=== PATIENT | male | born 1955 | race Caucasian/White ===

== ENCOUNTER 2024-08-28 01:59 | Inpatient (IN) | payer MEDICARE, SELFPAY ==
[2024-08-27 21:39] VITALS: BP 141/82
[2024-08-27 21:40] VITALS: BP 141/82
[2024-08-27 22:00] VITALS: BP 134/81
[2024-08-27 22:10] LABS: % Basophils 0.4 % (0-2); % Eosinophils 0.1 % (0-6); % Immature Granulocytes 0.4 % (0-0.5); % Lymphocytes 8.1 % (20.5-51.1); % Monocytes 4.8 % (1.7-9.3); % Neutrophils 86.2 % (42.2-75.2); Absolute Basophils 0.1 10^3/uL (0-0.2); Absolute Immature Granulocytes 0.1 10^3/uL (0-0.05); Absolute Lymphocytes 1.1 10^3/uL (1.2-3.4); Absolute Monocytes 0.7 10^3/uL (0.1-0.6); Absolute Neutrophils 11.7 10^3/uL (1.4-6.5); Hemoglobin 13.4 g/dL (13.0-18.0); Mean Corp Hgb Conc. 35.3 g/dL (33.0-37.0); Mean Corpuscular Hgb 28.7 pg (27.0-31.0); Mean Corpuscular Volume 81.4 fL (80.0-94.0); Mean Platelet Volume 8.9 fL (7.4-10.4); Nucleated Red Blood Cells % 0 % (-); Platelet Count 178 10^3/uL (130-400); Red Blood Cell Count 4.67 10^6/uL (4.70-6.10); Red Cell Dist. Width 12.9 % (11.5-14.5); White Blood Cell Count 13.6 10^3/uL (4.8-10.8)
[2024-08-27 22:16] LABS: Lactic Acid 2.2 mmol/L (0.7-2.0)
[2024-08-27 22:17] LABS: ALT (SGPT) 27 U/L (0-50); AST (SGOT) 23 U/L (17-59); Alkaline Phosphatase 74 U/L (38-126); Blood Urea Nitrogen 24 mg/dl (9-20); Calcium 10.2 mg/dl (8.4-10.2); Carbon Dioxide 18 mmol/L (22-30); Chloride 99 mmol/L (98-107); Estimated Creatinine Clearance 88 ml/min; Glucose 162 mg/dl (70-99); Potassium 3.9 mmol/L (3.5-5.1); Sodium 132 mmol/L (135-145); Total Bilirubin 0.9 mg/dl (0.2-1.3); Total Protein 7.7 g/dl (6.3-8.2); eGFR > 60.00
[2024-08-27 22:25] LABS: COVID-19 Antigen Negative (Negative)
--- NOTE | 2024-08-27 22:41 | ED.GENMED ---
History of Present Illness
General
Chief Complaint: Fever
Source: patient and spouse
Exam Limitations: none
Time Seen by Provider: 08/27/24 22:18
Nursing documentation reviewed up to this point in time: agreed with
History of Present Illness
History of Present Illness:
69-year-old male with past medical history of hypertension, diabetes who presents to the emergency department with his and son for evaluation of fever. Of note is 5 days status post cardiac catheterization and stent at [facility]
of [place] with Dr. Victorino Aguilar. He reports that he was doing generally well until this afternoon when he started to notice he was having shaking chills and fever. He says symptoms continued in the evening and he took 2 extra strength Tylenol and
a dose of penicillin and called EMS to bring him to the hospital for assessment. He has not had any symptoms aside from fever or chills�denies any cough, sore throat, URI symptoms. He denies any shortness of breath or chest pain. He denies any
abdominal pain, nausea, vomiting, diarrhea. Denies any dysuria, hematuria, change in frequency. Cardiac cath was through right wrist and is not noticed any redness or swelling in this area. He says he has had cellulitis in the right leg in the
past but has not had any redness or swelling there either. He denies any other complaints.
Review of Systems
Review of Systems
All Other Systems: ROS reviewed and negative except as documented in HPI and ROS
Constitutional: Reports fever, fatigue and chills
EENT: Denies sore throat or runny nose
Respiratory: Denies cough or trouble breathing
Cardiac: Denies chest pain or palpitations
ABD/GI: Denies abdominal pain, nausea, vomiting or diarrhea
: Denies dysuria, frequency or flank pain
Musculoskeletal: Denies neck pain or back pain
Neurological: Denies dizzy or headache
Phy Exam
Physical Exam
Physical Exam:
General: Awake, alert, oriented x3; no acute distress
Head: Normocephalic, atraumatic
Eyes: Conjunctiva normal, sclera anicteric
Throat: Airway intact, handling secretions
Neck: Trachea midline, supple without meningismus
Lungs: Clear to auscultation bilaterally, no wheezing, rales, rhonchi
Heart: Tachycardia with regular rhythm, no murmurs, gallops, or rubs
Abd: Soft, non distended, nontender
Neuro: No gross deficits
Skin: no rash, no erythema or warmth noted on skin exam; he has puncture site right radial region with no signs of infection, no significant swelling
Extremities: No edema in extremities, equal pulses in all extremities
Scores
Heart Failure Risk
Heart Failure Risk Score: Not Applicable
Heart Score for Chest Pain Patients
STEMI patient?: Not applicable
Withdrawal Assessment of Alcohol
Withdrawal Assessment Completed?: Not applicable
Sepsis
Sepsis Screening
Sepsis Assessment: Sepsis
Sepsis Screening: Lactate >2mmol/L
Sepsis Screen
Sepsis Screen: Sepsis
Date: 08/27/24
Time: 22:51
Course
Orders/Labs/Results
Orders:
Orders
08/27/24 21:46
Electrocardiogram (*1) Urgent
Reason for Study: Other
Other Reason for Exam: Possible Sepsis
Cardiac Monitoring- Treatment ONCE
IV Insert/Care/Rem.- Treatment PRN
O2 Therapy [RESP] Urgent
Titrate/Wean O2 to maintain O2 sat greater than (%): 93
Special Instructions: TO MAINTAIN CONTINUOUS O2 SATS > OR = 93%
Pulse Ox/cont/shift [RESP] Urgent
Quantity: 1
Special Instructions: CONTINUOUS
08/27/24 21:47
EKG- Treatment ONCE
08/27/24 21:49
Complete Blood Count/With Diff Urgent
Comprehensive Metabolic Panel Urgent
Lactic Acid Q4H
Comment: ON ICE, CANCEL 2ND ORDER IF FIRST LACTIC ACID LEVEL <2
08/27/24 21:52
COVID-19 Antigen Urgent
Source: Nasal Swab
Influenza A+B Rapid Molecular Urgent
KATTY Source: Nasal Swab
Specimen Description:
08/27/24 22:30
CR Chest - 2 Views Urgent
Comment:
Reason For Exam: fever
08/27/24 22:41
0.9% Sodium Chloride 1000 ml [Nss] 1,000 ml IV BOLUS
08/27/24 22:51
Piperacillin/Tazo 3.375 Gram [Zosyn] 3.375 gram in 50 ml IV NOW
Vancomycin [Vancocin] 2,000 mg 0.9% Sodium Chloride 500 ml [Nss] 500 ml IV NOW
08/27/24 23:04
Urinalysis Reflex To Culture Urgent
Date Specimen was Collected: 08/27/24
Time Specimen was Collected: 23:03
Urine Microscopic Reflex Cult Urgent
Blood Culture Q30M
KATTY Source: Blood/Venous
Specimen Description:
Blood Culture Q30M
KATTY Source: Blood/Venous
Specimen Description:
08/28/24 01:02
Admit/Transfer Patient As Directed
Co-Sign Provider:
Level of Care: Inpatient admission
Assign to:: Medical/Surgical
Physician / Group: José
Diagnosis: SIRS
Reason for Hospitalization: SIRS
Expected length of stay greater than two midnights?: Yes
ELOS- Estimated Length of Stay in days: 2
I certify the patient meets the requirements for IP care: Yes
08/28/24 01:03
PRN Pain Medication Management As Directed
May give lesser potent ordered pain med per pt: Yes
preference::
Protocol:: Medication orders for pain may be administered in a
manner that supports deferring to patient preference
when the pt is:
- Requesting an ordered lesser potent pain medication.
Least to most potent pain medications are defined
as: acetaminophen < NSAID < tramadol < opioids
(morphine, oxycodone, hydromorphone).
- Requesting a lesser dose of the same medication IF
ORDERED.
- Requesting a less intrusive route of administration
if both routes are prescribed by the provider (PO <
IV).
08/28/24 01:04
Code Status As Directed
Resuscitation Status: Full Code
08/28/24 02:12
Acetaminophen [Tylenol] 650 mg PO Q4HPRN PRN
Dextrose 50%-Water [Dextrose 50% Syringe] 12.5 grams IV [id number] PRN
Glucagon [GlucaGen] 1 mg IM PRN PRN
Lactated Ringers [Lr] 1,000 ml IV 100 mls/hr
08/28/24 02:12
Activity As Directed
Activity Level: Ambulate
With Assistance
Bedside Glucose Monitoring As Directed
Frequency: AC&HS
Additional Instructions:: Change to q6h if pt on TPN, tube feeding or not eating
Bladder Scan As Directed
Follow Bladder Retention/Intermittent Cath Algorithm?: Yes
PRN if no void in __ hours: 6
Frequency: Per Retention Algorithm
If Bladder Scan Result >: 400
then:: Straight cath
I/O [Intake/ Output] As Directed
Frequency: Per unit guidelines
Straight Cath As Directed
Frequency: Per Retention Algorithm
Additional Instructions: straight cath as needed per acute urinary retention algorithm for 24 hrs
Additional Instructions: for bladder scan greater than 400 mL
Vital Signs As Directed
Frequency: Per unit guidelines
Oxygen Therapy [O2 Therapy] [RESP] Routine
Titrate/Wean O2 to maintain O2 sat greater than (%): 94
DX Deep Vein Thrombosis Video Routine
08/28/24 02:26
CRP [C-Reactive Protein] Routine
ESR [Erythrocyte Sed Rate] Routine
Lactic Acid Q4H
Comment: ON ICE, CANCEL 2ND ORDER IF FIRST LACTIC ACID LEVEL <2
08/28/24 04:00
Piperacillin/Tazo 3.375 Gram [Zosyn] 3.375 gram in 50 ml IV Q6H
08/28/24 Breakfast
2000 calorie (17 carb) Diabetic
At Your Request: Full Participation
Basic Metabolic Panel IN AM
Complete Blood Count/No Diff IN AM
Glycohemoglobin (HgbA1c) IN AM
08/28/24 07:30
Insulin Aspart Corrective Low [Novolog Flexpen-Low Resistance] See Protocol SC AC
08/28/24 08:00
Aspirin Chewable [Low Strength Aspirin] 81 mg PO DAILY
Clopidogrel Bisulfate [Plavix] 75 mg PO DAILY
08/28/24 12:00
Losartan [Cozaar] 100 mg PO NOON
08/28/24 18:00
Enoxaparin Sodium [Lovenox] 40 mg SC QPM
Rosuvastatin Calcium [Crestor] 10 mg PO QPM
08/28/24 22:00
Finasteride [Proscar] 5 mg PO HS
Tamsulosin [Flomax] 0.4 mg PO HS
Abnormal Lab Results
08/27/24 08/27/24
21:49 23:04
WBC 13.6 H 10^3/uL
(4.8-10.8)
RBC 4.67 L 10^6/uL
(4.70-6.10)
Hct 38.0 L %
(39.0-52.0)
Abs Immat Gran (auto) 0.1 H 10^3/uL
(0-0.05)
Absolute Neuts (auto) 11.7 H 10^3/uL
(1.4-6.5)
Absolute Lymphs (auto) 1.1 L 10^3/uL
(1.2-3.4)
Absolute Monos (auto) 0.7 H 10^3/uL
(0.1-0.6)
Neutrophils % 86.2 H %
(42.2-75.2)
Lymphocytes % 8.1 L %
(20.5-51.1)
Sodium 132 L mmol/L
(135-145)
Carbon Dioxide 18 L mmol/L
(22-30)
BUN 24 H mg/dl
(9-20)
Glucose 162 H mg/dl
(70-99)
Lactic Acid 2.2 H mmol/L
(0.7-2.0)
Ur Occult Blood Reflex 1+ A
(Negative)
Urine RBC 3-6 A /HPF
(0-2)
Urine Bacteria (Reflex) Few A
(Negative)
Urine Albumin (Reflex) 2+ A
(Neg - Trace)
08/27/24 21:49
08/27/24 21:49
Vital Signs
Initial and Last Documented VS:
Initial Vital Signs
Temp Pulse Resp BP Pulse Ox
37.0 C 111 22 141/82 96
08/27/24 21:39 08/27/24 21:39 08/27/24 21:39 08/27/24 21:39 08/27/24 21:39
Last Documented Vital Signs
Temp Pulse Resp BP Pulse Ox
37.3 C 101 20 127/73 94
08/28/24 02:25 08/28/24 01:00 08/28/24 01:00 08/28/24 01:00 08/28/24 00:45
MDM/Problems Addressed
Differential Diagnosis Includes:
Pneumonia, UTI, bacteremia, viral syndrome
MDM/Problems Addressed:
69-year-old male presents for evaluation of fever and chills 5 days status post cardiac cath and stent at [facility]. Took 2 Tylenol and a dose of penicillin and came to the ER. Tachycardic, mild tachypnea, febrile
here. Normotensive. Normal pulse ox on room air. Physical exam as above. No obvious focus for infection on exam or by history. Will place an IV send labs including a CBC and a CMP, lactate and blood cultures. Swab for COVID and flu. Check an
EKG. Will check chest x-ray and urinalysis. Will provide fluids. Reassess after the above.
Initial labs reviewed: CBC shows leukocytosis of 13.6. CMP shows mild metabolic acidosis; lactate was elevated at 2.2 suspect likely lactic acidosis. COVID and flu swabs have been negative. Chest x-ray and urinalysis are pending. He is at risk
for bacteremia given recent procedure I think with multiple SIRS criteria and elevated lactate will plan to cover with broad-spectrum antibiotics pending blood cultures. Anticipate admission pending chest x-ray and urinalysis.
Chest x-ray reviewed by me question a right perihilar pneumonia although upon review of radiology report read as no acute disease. His urinalysis is negative for infection. Will plan to admit pending blood cultures cover with broad-spectrum
antibiotics as above. Given IV fluids with elevated lactate but with lactate less than 4 and normotension no need for 30 cc/kg bolus. Case discussed with hospitalist for admission.
*Radiology
Radiology exam reviewed: preliminary read by ED provider and radiology read reviewed
*Pulse Oximetry
Patient hypoxic: no
*EKG
Interpreted by ED Provider?: Yes
Heart Rate: 107
Rate: tachycardiac
Rhythm: sinus and sinus tachycardia
[place]: normal axis
Interval: normal interval
QRS Pattern: normal QRS
Ischemia: non-specific ST changes
*Critical Care Note
Total Time (30-74mins, 75-104mins- exclusive of procedures): Not Applicable
Data Reviewed
Source: patient, spouse and family
Patient Management
Discussion with other providers: Hospitalist (Discussed with hospitalist)
Escalation/DeEscalation of care consider admission/obs:
Admission indicated
ED Attending Note
-
Portions of this chart may have been created with voice recognition software.� Occasional wrong word or��sound alike� substitutions may have occurred due to the inherent limitations of voice recognition software.
Discharge Plan
Departure
Patient Disposition: Admit
Date of Disposition: 08/27/24
Time of Disposition: 23:39
Admit to doctor: José
Presentation/result/management discussed w/ accepting MD/DO: Hospitalist
Discharge Problem:
Sepsis
Interventions
Interventions:
*Risk Screen - Suicide Last Done: 08/27/24 21:39
*General Assessment Last Done: 08/27/24 21:39
*Neglect/Abuse Screening Last Done: 08/27/24 21:39
ED- Fall Risk Assessment Last Done: 08/27/24 21:46
*ED COVID-19 Vaccine History Last Done: 08/27/24 21:39
ED- Neurological Assessment Last Done: 08/27/24 22:00
ED-Skin Assessment Last Done: 08/27/24 22:00
[2024-08-27] MEDS: NSS 1000 IV (22:59)
[2024-08-27] MEDS: ZOSYN 50 IV (22:59)
[2024-08-27 23:16] LABS: Urine Albumin 2+ (Neg - Trace); Urine Bilirubin Negative (Negative); Urine Character Clear (Clear); Urine Color Yellow; Urine Glucose Negative (Negative); Urine Ketone Negative (Negative); Urine Leukocyte Negative (Negative); Urine Nitrite Negative (Negative); Urine Occult Blood 1+ (Negative); Urine Specific Gravity 1.015 (<1.030); Urine Urobilinogen Negative (Neg - 1+)
[2024-08-27 23:27] LABS: Urine Squamous Cell 0-2 /LPF (Few)
[2024-08-27 23:28] LABS: Urine White Cell 0-2 /HPF (0-5)
[2024-08-27 23:30] LABS: Urine Bacteria Few (Negative)
[2024-08-28] VITALS (7 sets, daily range): BP systolic 124–143; BP diastolic 62–92; BMI 36.9
[2024-08-28] MEDS: VANCOCIN 540 MG IV (00:09)
--- NOTE | 2024-08-28 01:09 | HPS.HSE ---
Family Physician
-
Family Physician: Sg Bradshaw
Chief Complaint
-
Fever / Chills
History of Present Illness
Patient is a 69y M with PMH significant for hypertension and ASCVD s/p recent cardiac cath / stent who presents to ED complaining of fevers / chills. Patient states that he underwent cath with LAD stent placement at [facility] on 08/22/24. This was
done on a scheduled basis following outpatient work-up. He felt well following the procedure. This afternoon around 4-5 PM he developed shaking chills and fever at home. He presented to the ED for further evaluation and treatment.
He reports mild headache this afternoon as well. Patient denies any other focal symptoms / complaints. He denies cough, SOB, abdominal pain, N/V/D or urinary symptoms.
Patient reports prior h/o RLE cellulitis and states his symptoms usually begin with fevers / chills and are followed by development of RLE redness / inflammation within 24 hours.
He denies any recent sick contacts.
No recent travel.
In the ED he is resting comfortably.
Medical History
Past Medical History
Past Medical History: Reports Other
Additional Past Medical History:
ASCVD
Hypertension
DM-II
Dyslipidemia
DJD
Obesity
Past Surgical History: Reports Other
Additional Past Surgical History:
PTCA with LAD Stent (08/22/24)
Cholecystectomy
Social History
Tobacco: Former Smoker (Quit smoking 20 years ago. Approx 20 pack years total use.)
Alcohol: Occasional
Drug: None
Family History
Family History: Not pertinent
Allergies / Home Medications
Allergies reflects when Allergies were last updated in [employer].
Home Medications with original date entered in [employer]
Allergy/Medication List:
Allergies
Allergy/AdvReac Type Severity Reaction Status Date / Time
steroids Allergy Swelling Uncoded 08/27/24 21:46
Home Medications
amlodipine 10 mg tablet 10 mg PO DAILY 08/27/24
aspirin 81 mg capsule 81 mg PO QPM 08/27/24
clopidogrel 75 mg tablet (Plavix) 75 mg PO DAILY 08/27/24
finasteride 5 mg tablet 5 mg PO HS 08/27/24
indapamide 1.25 mg tablet 1.25 mg PO DAILY 08/27/24
losartan 100 mg tablet 100 mg PO NOON 08/27/24
metformin 500 mg tablet 500 mg PO BID 08/27/24
rosuvastatin 10 mg tablet 10 mg PO QPM 08/27/24
tamsulosin 0.4 mg capsule 0.4 mg PO HS 08/27/24
Review of Systems
-
History Source: Patient
A 12 point ROS was completed and negative except as noted: Yes
Constitutional: Reports Fever, Fatigue and Chills
EENT: Denies Sore Throat
Respiratory: Denies Cough or Trouble Breathing
Cardiac: Denies Chest Pain or Palpitations
Abdomen/GI: Denies Abdominal Pain, Nausea, Vomiting or Diarrhea
: Denies Dysuria, Frequency or Flank Pain
Musculoskeletal: Denies Joint Pain or Edema
Skin: Denies Rash
Neurological: Reports Headache; Denies Dizzy
Psych: Denies Depression or Anxiety
Physical Exam
Vital Signs
Vital Signs
Temp Pulse Resp BP Pulse Ox
99.6 F 100 15 124/72 94
08/28/24 00:32 08/28/24 00:45 08/28/24 00:45 08/28/24 00:00 08/28/24 00:45
Physical Exam
General: Other (69y M in no acute distress.)
HEENT: Moist mucous membranes and PERRLA
Respiratory: Clear; No Wheezes, Rales or Rhonchi
Cardiac: S1/S2 and Regular Rhythm; No Murmur
GI: Soft, Non Tender, Non Distended and Normal Bowel Sounds
Musculoskeletal: No Clubbing, No Cyanosis and No Edema
Skin: Other (R radial puncture site well-healed without surrounding erythema, induration, fluctuance, etc.)
Neuro: AO x 3
Laboratory Results
-
08/27/24 21:49
08/27/24 21:49
Laboratory Results
Lactic Acid 2.2 mmol/L (0.7-2.0) H 08/27/24 21:49
Total Bilirubin 0.9 mg/dl (0.2-1.3) 08/27/24 21:49
AST 23 U/L (17-59) 08/27/24 21:49
ALT 27 U/L (0-50) 08/27/24 21:49
Alkaline Phosphatase 74 U/L (38-126) 08/27/24 21:49
Impression/Plan
-
A/P: Patient is a 69y M with PMH significant for HTN, DM-II and recent LAD stent placement who presents to ED complaining of fevers / chills this afternoon.
Rigors / SIRS
- Admit for further evaluation and treatment.
- Patient presents with fever, tachycardia, tachypnea and leukocytosis with L shift.
- No evident source of infection noted at this time. No focal symptoms. UA unremarkable. CXR unremarkable. COVID / Flu negative.
- Follow fever curve and monitor for any new / focal complaints.
- Check inflammatory markers.
- Monitor for any developing cellulitis in the RLE (as patient has had previously).
- Will continue Zosyn for now pending culture data - but low threshold to discontinue if no further fevers / symptoms / etc.
- IVF support overnight.
ASCVD
- s/p LAD stent on 08/22/24.
- No chest pain, dyspnea, etc.
- No evidence of infection, inflammation, etc at R radial access site.
- Continue DAPT uninterrupted.
- Continue statin.
Benign Hypertension
- Continue losartan with holding parameters.
- Hold amlodipine and indapamide acutely - resume if BP allows.
DM-II
- Stable. Hold PO metformin.
- Follow glucose and cover with SSI as needed.
- Update A1C.
BPH
- Stable. Continue tamsulosin / Proscar.
- Bladder scan protocol.
Obesity due to excess calories
- Affects all aspects of care.
- Encourage healthy diet and increased activity with goal of weight loss.
DVT Prophylaxis: Lovenox
Code Status: Full
[2024-08-28] MEDS: LR 1000 IV ×3 (02:25→22:59)
[2024-08-28 02:58] LABS: Lactic Acid 1.4 mmol/L (0.7-2.0)
[2024-08-28 03:09] LABS: Erythrocyte Sed Rate 18 mm/hour (0-20)
[2024-08-28] MEDS: ZOSYN 50 IV ×4 (04:14→21:19)
[2024-08-28 05:12] LABS: Hematocrit 34.4 % (39.0-52.0); Hemoglobin 12.1 g/dL (13.0-18.0); Mean Corp Hgb Conc. 35.2 g/dL (33.0-37.0); Mean Corpuscular Hgb 28.8 pg (27.0-31.0); Mean Corpuscular Volume 81.9 fL (80.0-94.0); Mean Platelet Volume 8.5 fL (7.4-10.4); Platelet Count 134 10^3/uL (130-400); White Blood Cell Count 8.9 10^3/uL (4.8-10.8)
[2024-08-28 05:30] LABS: Blood Urea Nitrogen 21 mg/dl (9-20); Calcium 9.7 mg/dl (8.4-10.2); Carbon Dioxide 24 mmol/L (22-30); Chloride 103 mmol/L (98-107); Estimated Creatinine Clearance 88 ml/min; Glucose 156 mg/dl (70-99); Potassium 3.7 mmol/L (3.5-5.1); Sodium 135 mmol/L (135-145); eGFR > 60.00
[2024-08-28] MEDS: PLAVIX 75 MG PO (08:42)
[2024-08-28] MEDS: LOW STRENGTH ASPIRIN PO (08:44)
[2024-08-28 08:47] LABS: Glucose - Point of Care 172 mg/dl (70-99)
[2024-08-28 09:41] LABS: Glycohemoglobin (HgbA1c) 6.9 % (4.0-5.6)
[2024-08-28] MEDS: NOVOLOG FLEXPEN-LOW RESISTANCE 1 UNITS SC ×3 (10:02→18:22)
[2024-08-28 13:30] LABS: Glucose - Point of Care 182 mg/dl (70-99)
--- NOTE | 2024-08-28 13:55 | W.PN.UPDATE ---
Addendum entered and electronically signed by Yohannes Barr MD 08/28/24 14:19:
right wrist cath site was reviewed, n o erythema/purulence at site.
no respiratory symptoms to suspect pna
Original Note:
Update Note
Progress Note Update
Presenting with acute onset fevers chills muscle aches. No clear source of infection at this point in time. No evidence of cellulitis on the limbs nor back nor abdomen. No crackles/rhonchi on lung examination. No murmurs noted on examination.
Therefore at this time there is no source of infection.
He is hemodynamically stable. All bite he does not feel very good.
I have a strong suspicion that this is likely acute viral syndrome than bacterial infection.
I spoke to him about benefits versus risk of continuing/discontinuing antibiotics awaiting culture data.
At this time he wants to continue antibiotics. Will check a procalcitonin along with extended respiratory viral panel.
[2024-08-28] MEDS: COZAAR 100 MG PO (14:03)
[2024-08-28] MEDS: TYLENOL 650 MG PO (16:58)
[2024-08-28 18:20] LABS: Glucose - Point of Care 160 mg/dl (70-99)
[2024-08-28] MEDS: CRESTOR 10 MG PO (18:20)
--- NOTE | 2024-08-28 18:25 | PTCARENOTE ---
Called report to unit, pt transported with belongings without incident
[2024-08-28] MEDS: LOW STRENGTH ASPIRIN 81 MG PO (18:30)
[2024-08-28] MEDS: PROSCAR 5 MG PO (21:19)
[2024-08-28] MEDS: FLOMAX 0.4 MG PO (21:19)
[2024-08-28 21:54] LABS: Glucose - Point of Care 209 mg/dl (70-99)
[2024-08-29] MEDS: ZOSYN 50 IV ×2 (04:14→10:14)
[2024-08-29 07:28] LABS: Glucose - Point of Care 146 mg/dl (70-99)
[2024-08-29 07:30] VITALS: BP 151/86
[2024-08-29] MEDS: PLAVIX 75 MG PO (08:11)
[2024-08-29] MEDS: NOVOLOG FLEXPEN-LOW RESISTANCE SC ×2 (08:11→12:43)
[2024-08-29] MEDS: LOW STRENGTH ASPIRIN 81 MG PO (08:12)
[2024-08-29] MEDS: LR 1000 IV (08:21)
--- NOTE | 2024-08-29 11:12 | W.PN.HOSP.TC ---
Today's Communication/Plan
-
dc home today
Assessment / Plan
Assessment / Plan
NAD
Scleral anicteric
MMM
No jvd
CTABL
RRR
Soft NT ND Bs+
No rash/erythema
No purulent drainage nor pain at recent right wrist cath site
Acute viral syndrome
-Bcx NGTD
-Exetended viral panel pending, though even negative does not exclude this diagnosis
-Symptomaology most consistent with viral infection
-Supportive care
-Outpt PCP follow up
CAD s/p PCI
-Contniie DAPT, stating
BPH
-Continue finasteride and flomax
HTN
-Continue antihypertensive
DM 2
-Cotnineu Metformine
Anticipated Discharge: Today
Subjective/Interval History
-
Date of Service: August 29, 2024
seen and examiend. no new compalitns. no acute ovneirhgt evets
states feeling better
no further episodes of myalgias fevers chills
Objective Data
-
Vital Signs:
Vital Signs
Temp Pulse Resp BP Pulse Ox
99.7 F 88 18 151/86 94
08/29/24 07:30 08/29/24 07:30 08/29/24 07:30 08/29/24 07:30 08/29/24 07:30
I&O
08/28/24 08/29/24 08/30/24
06:59 06:59 06:59
Intake Total 120 / 120 400 / 400
Balance 120 / 120 400 / 400
--- NOTE | 2024-08-29 11:17 | W.DCSUMMARY ---
Discharge Summary
Discharge Data
Date of Admission: 08/28/24
Date of Discharge: 08/29/24
-
Pending Results: No
Hospital Course
69y M with PMH significant for hypertension and ASCVD s/p recent cardiac cath / stent
Presented with fever, chills and myalgias. Blood cultures no growth to date. Covid and flu negative. Started on iv antibiotics as there was concern for sepsis though no source of infection was noted. Had a recent left heart catheterization via the
right wrist. There was no purulent drainage nor pain/redness at right wrist site. Remained hemodynamically stable throughout the hospitalization. Suspect the cause of the fever and chills was likely related to acute viral syndrome. Please follow up
with outpatient technology training associate as recently had [facility] with PCI and outpatient PCP follow up.
Discharge Plan
-
Patient Disposition: Home (Routine Discharge)
Discharge Diagnosis/Procedures: Acute viral syndrome
Condition: Good
Diet: As tolerated and Diabetic, Carb Controlled
Activity: As tolerated
Activity Restrictions/Additional Instructions:
Presented with fever, chills and myalgias. Blood cultures no growth to date. Covid and flu negative. Started on iv antibiotics as there was concern for sepsis though no source of infection was noted. Had a recent left heart catheterization via the
right wrist. There was no purulent drainage nor pain/redness at right wrist site. Remained hemodynamically stable throughout the hospitalization. Suspect the cause of the fever and chills was likely related to acute viral syndrome. Please follow up
with outpatient technology training associate as recently had [facility] with PCI and outpatient PCP follow up.
Referrals:
Sg Bradshaw DO [Family Provider] -
Prescriptions:
Continued
metformin 500 mg Tablet
500 mg PO BID
clopidogrel [Plavix] 75 mg Tablet
75 mg PO DAILY
tamsulosin 0.4 mg Capsule
0.4 mg PO HS
indapamide 1.25 mg Tablet
1.25 mg PO DAILY
losartan 100 mg Tablet
100 mg PO NOON
finasteride 5 mg Tablet
5 mg PO HS
aspirin 81 mg Capsule
81 mg PO QPM
amlodipine 10 mg Tablet
10 mg PO DAILY
rosuvastatin 10 mg Tablet
10 mg PO QPM
Discharge Orders:
Discharge Patient (As Directed); Ordered 08/29/24
Ordered By: Yohannes Barr
Discharge Date and Time
Print Language: MAORI
[2024-08-29 11:50] VITALS: BMI 36.7
[2024-08-29] MEDS: COZAAR 100 MG PO (12:11)
[2024-08-29 12:18] VITALS: BP 134/72
[2024-08-29 12:36] LABS: Glucose - Point of Care 136 mg/dl (70-99)
== END 2024-08-29 14:36 | disposition home or self-care (01) | DRG 866 ==
LOC: 4 WEST ACU 01:59
PROVIDERS: ADMITTING PHYSICIAN Hospitalist; ATTENDING PHYSICIAN Hospitalist; EMERGENCY PHYSICIAN Emergency Medicine; FAMILY PHYSICIAN Family Medicine Adult Medicine
DX: B34.9 Viral infection, unspecified (principal); N40.0 Benign prostatic hyperplasia without lower urinary tract symptoms; I25.10 Atherosclerotic heart disease of native coronary artery without angina pectoris; I10 Essential (primary) hypertension; E11.9 Type 2 diabetes mellitus without complications; E66.09 Other obesity due to excess calories; Z68.36 Body mass index [BMI] 36.0-36.9, adult; Z11.52 Encounter for screening for COVID-19; E78.5 Hyperlipidemia, unspecified; M19.90 Unspecified osteoarthritis, unspecified site; Z79.82 Long term (current) use of aspirin; Z79.02 Long term (current) use of antithrombotics/antiplatelets; Z87.891 Personal history of nicotine dependence; Z95.5 Presence of coronary angioplasty implant and graft
CPT/HCPCS: 71046; 80048; 80053; 81003; 81015; 82962; 83036; 83605; 85025; 85027; 85652; 86140; 87040; 87502; 87633; 87811; 93005

== ENCOUNTER 2024-12-17 11:52 | Inpatient (IN) | payer MEDICARE, OTHER, SELFPAY ==
[2024-12-15] VITALS (7 sets, daily range): BP systolic 108–131; BP diastolic 57–75; BMI 36.9; BMI 36.3
[2024-12-15 15:20] LABS: % Basophils 0.3 % (0-2); % Immature Granulocytes 0.4 % (0-0.5); % Lymphocytes 8.5 % (20.5-51.1); % Monocytes 4.6 % (1.7-9.3); % Neutrophils 86.2 % (42.2-75.2); Absolute Immature Granulocytes 0.1 10^3/uL (0-0.05); Absolute Lymphocytes 1.2 10^3/uL (1.2-3.4); Absolute Monocytes 0.6 10^3/uL (0.1-0.6); Absolute Neutrophils 11.7 10^3/uL (1.4-6.5); Hematocrit 37.8 % (39.0-52.0); Hemoglobin 13.5 g/dL (13.0-18.0); Mean Corp Hgb Conc. 35.7 g/dL (33.0-37.0); Mean Corpuscular Hgb 28.6 pg (27.0-31.0); Mean Corpuscular Volume 80.1 fL (80.0-94.0); Mean Platelet Volume 9.1 fL (7.4-10.4); Nucleated Red Blood Cells % 0 % (-); Platelet Count 155 10^3/uL (130-400); Red Blood Cell Count 4.72 10^6/uL (4.70-6.10); Red Cell Dist. Width 12.9 % (11.5-14.5); White Blood Cell Count 13.6 10^3/uL (4.8-10.8)
[2024-12-15 15:32] LABS: Lactic Acid 1.9 mmol/L (0.7-2.0)
[2024-12-15 15:39] LABS: ALT (SGPT) 21 U/L (0-50); AST (SGOT) 19 U/L (17-59); Albumin 4.4 g/dl (3.5-5.0); Alkaline Phosphatase 56 U/L (38-126); Blood Urea Nitrogen 20 mg/dl (9-20); Calcium 9.3 mg/dl (8.4-10.2); Carbon Dioxide 22 mmol/L (22-30); Chloride 104 mmol/L (98-107); Glucose 192 mg/dl (70-99); Potassium 3.5 mmol/L (3.5-5.1); Sodium 136 mmol/L (135-145); Total Bilirubin 0.7 mg/dl (0.2-1.3); Total Protein 7.3 g/dl (6.3-8.2); eGFR > 60.00
--- NOTE | 2024-12-15 17:48 | ED.GENMED ---
History of Present Illness
General
Chief Complaint: Fever
Time Seen by Provider: 12/15/24 17:09
History of Present Illness
History of Present Illness:
Patient is a 69-year-old male with history of diabetes, hypertension, hyperlipidemia, CAD presenting to the emergency department with fever. Per chart review patient was admitted for sepsis earlier this year without a clear source of infection.
Patient and patient's at bedside state that last time he was sick he had sudden onset of symptoms requiring broad-spectrum antibiotics. They state that yesterday he was feeling fine. Developed a fever last night. This morning noticed redness
to his right lower extremity. He does state that he has history of cellulitis about 6 years ago. No traumatic events. No swelling. No wounds that he is aware of. No cough congestion chest pain shortness of breath nausea vomiting diarrhea
Phy Exam
Physical Exam
Physical Exam:
GENERAL: in no acute distress
HEENT: normocephalic, extraocular movements intact, moist oral mucosa
NECK: normal inspection
RESPIRATORY: no respiratory distress, clear to auscultation bilaterally
CARDIOVASCULAR: regular rate and rhythm
ABDOMEN/: soft, non-distended, non-tender to palpation, no rebound or guarding
EXTREMITIES: Right lower extremity with erythema and warmth to the anterior wong (area outlined in marker), 2+ DP pulses, normal sensation, mild swelling, no open wounds or drainage
NEUROLOGIC: awake and alert, moves all extremities
SKIN: warm
Course
Orders/Labs/Results
Orders:
Orders
12/15/24 15:13
Complete Blood Count/With Diff Urgent
Comprehensive Metabolic Panel Urgent
Lactic Acid Q4H
Comment: ON ICE, CANCEL 2ND ORDER IF FIRST LACTIC ACID LEVEL <2
Blood Culture Q20M
KATTY Source: Blood/Venous
Specimen Description:
Comment: Urgent from separate sites. If patient screens positive for possible sepsis
12/15/24 15:15
Blood Culture Q20M
KATTY Source: Blood/Venous
Specimen Description:
Comment: Urgent from separate sites. If patient screens positive for possible sepsis
12/15/24 17:47
*Vancomycin 1,500 mg Loading Dose(consider for 50-69 kg; MAX HD load) Vancomycin [Vancocin] 1,500 mg 0.9% Sodium Chloride 500 ml [Nss] 500 ml IV NOW
Zosyn 4.5 grams IVPB NOW Piperacillin/Tazo 4.5 Gram [Zosyn] 4.5 gram in 100 ml IV NOW
Abnormal Lab Results
12/15/24
15:13
WBC 13.6 H 10^3/uL
(4.8-10.8)
Hct 37.8 L %
(39.0-52.0)
Abs Immat Gran (auto) 0.1 H 10^3/uL
(0-0.05)
Absolute Neuts (auto) 11.7 H 10^3/uL
(1.4-6.5)
Neutrophils % 86.2 H %
(42.2-75.2)
Lymphocytes % 8.5 L %
(20.5-51.1)
Glucose 192 H mg/dl
(70-99)
12/15/24 15:13
12/15/24 15:13
Vital Signs
Initial and Last Documented VS:
Initial Vital Signs
Temp Pulse Resp BP Pulse Ox
100.1 F 65 18 129/67 99
12/15/24 15:00 12/15/24 15:00 12/15/24 15:00 12/15/24 15:00 12/15/24 15:00
Last Documented Vital Signs
Temp Pulse Resp BP Pulse Ox
100.1 F 65 18 129/67 99
12/15/24 15:00 12/15/24 15:00 12/15/24 15:00 12/15/24 15:00 12/15/24 15:00
MDM/Problems Addressed
Differential Diagnosis Includes:
Patient is a 69-year-old man presenting to the emergency department with fever and skin infection. On arrival patient's temperature is 100.1. On exam he does have an area of redness to the right anterior wong with no drainage. I did outline the
area as he does state that last time it progressed rapidly. Concern for cellulitis, sepsis. History and exam not consistent with necrotizing soft tissue infection. Blood work obtained prior to evaluation does show a leukocytosis. His lactate is
1.9. Will give IV fluids. Patient's and patient's states that he did need vancomycin for MRSA at some point. Given patient's comorbidities we will also give him Zosyn. Will give IV fluids. Discussed with hospitalist who excepted patient to
their service.
*Critical Care Note
Total Time (30-74mins, 75-104mins- exclusive of procedures): Not Applicable
ED Attending Note
-
Portions of this chart may have been created with voice recognition software.� Occasional wrong word or��sound alike� substitutions may have occurred due to the inherent limitations of voice recognition software.
Discharge Plan
Departure
Patient Disposition: Admit
Date of Disposition: 12/15/24
Time of Disposition: 17:51
Presentation/result/management discussed w/ accepting MD/: Hospitalist
Discharge Problem:
Cellulitis
Prescriptions:
No Action
metformin 500 mg Tablet
500 mg PO BID
clopidogrel [Plavix] 75 mg Tablet
75 mg PO DAILY
tamsulosin 0.4 mg Capsule
0.4 mg PO HS
indapamide 1.25 mg Tablet
1.25 mg PO DAILY
losartan 100 mg Tablet
100 mg PO NOON
finasteride 5 mg Tablet
5 mg PO HS
aspirin 81 mg Capsule
81 mg PO QPM
amlodipine 10 mg Tablet
10 mg PO DAILY
rosuvastatin 10 mg Tablet
10 mg PO QPM
Referrals:
Bradshaw,Sg, DO [Family Provider, Family Practice]
Interventions
Interventions:
*Risk Screen - Suicide Last Done: 12/15/24 15:02
Discharge Date and Time
Print Language: CANADIAN
--- NOTE | 2024-12-15 18:00 | HPS.HSE ---
Family Physician
-
Family Physician: Sg Bradshaw
Chief Complaint
-
fever
History of Present Illness
Patient is a 69-year-old male with past medical history significant for ASCVD, hypertension, DM-II, dyslipidemia, DJD and obesity who presented to [facility] ED for evaluation of fever. Patient and report that patient had abrupt onset of fever last
evening and noticed redness to RLE this morning. Patient reports history of cellulitis to RLE in past on multiple occasions, he has no recent trauma history to RLE, but did have trauma to RLE as a child. Patient reports an epiosde of nausea and
vomiting. Denies any chills, cough, shortness of breath, chest pain, constipation, diarrhea or urinary symptoms.
Medical History
Past Medical History
Past Medical History: Reports Other
Additional Past Medical History:
ASCVD
Hypertension
DM-II
Dyslipidemia
DJD
Obesity
Past Surgical History: Reports Other
Additional Past Surgical History:
PTCA with LAD Stent (08/22/24)
Cholecystectomy
Social History
Tobacco: Former Smoker (Quit smoking 20 years ago. Approx 20 pack years total use.)
Alcohol: Occasional
Drug: None
Personal:
Living: With Family
Employment: Retired
Family History
Family History: Not pertinent
Allergies / Home Medications
Allergies reflects when Allergies were last updated in to[facility].
Home Medications with original date entered in to-[facility]
Allergy/Medication List:
Allergies
Allergy/AdvReac Type Severity Reaction Status Date / Time
steroids Allergy Swelling Uncoded 08/27/24 21:46
Home Medications
amlodipine 10 mg tablet 10 mg PO DAILY Blood Pressure 08/27/24
aspirin 81 mg capsule 81 mg PO QPM Blood Clot Prevention/Tx 08/27/24
clopidogrel 75 mg tablet (Plavix) 75 mg PO DAILY Blood Clot Prevention/Tx 08/27/24
finasteride 5 mg tablet 5 mg PO HS Urinary Issue 08/27/24
indapamide 1.25 mg tablet 1.25 mg PO DAILY 08/27/24
losartan 100 mg tablet 100 mg PO NOON Blood Pressure 08/27/24
metformin 500 mg tablet 500 mg PO BID Diabetes 08/27/24
rosuvastatin 10 mg tablet 10 mg PO QPM High Cholesterol 08/27/24
tamsulosin 0.4 mg capsule 0.4 mg PO HS Urinary Issue 08/27/24
Review of Systems
-
History Source: Patient
Constitutional: Reports Fever
EENT: Reports No Symptoms
Respiratory: Reports No Symptoms
Cardiac: Reports No Symptoms
Abdomen/GI: Reports Nausea and Vomiting
: Reports No Symptoms
Musculoskeletal: Reports No Symptoms
Skin: Reports Other (RLE erythema )
Neurological: Reports No Symptoms
Endocrine: Reports No Symptoms
Hematologic/Lymphatic: Reports No Symptoms
Psych: Reports No Symptoms
Physical Exam
Vital Signs
Vital Signs
Temp Pulse Resp BP Pulse Ox
100.1 F 65 18 129/67 99
12/15/24 15:00 12/15/24 15:00 12/15/24 15:00 12/15/24 15:00 12/15/24 15:00
Physical Exam
General: Well Developed, Well Nourished, No Apparent Distress, Comfortable and Conversant
HEENT: NormoCephalic, Moist mucous membranes, Atraumatic, [place] Conjunctivae, Nose Appears Normal and Ears Appear Normal
Respiratory: Clear
Cardiac: S1/S2 and Regular Rhythm
Breast: Deferred by me
GI: Soft, Non Tender, Non Distended and Normal Bowel Sounds
Rectal: Deferred by Provider
Genito-urinary: Deferred by me
Musculoskeletal: No Clubbing, No Cyanosis and No Edema
Skin: Warm, IV/Catheter Site and Other (RLE erythema and warm to touch )
Neuro: Awake, Alert, AO x 3 and Nonfocal/grossly intact
Psych: Calm and Intact Judgment/Insight
Laboratory Results
-
12/15/24 15:13
12/15/24 15:
Laboratory Results
Lactic Acid Cancelled 12/15/24 15:15
Total Bilirubin 0.7 mg/dl (0.2-1.3) 12/15/24 15:
AST 19 U/L (17-59) 12/15/24 15:
ALT 21 U/L (0-50) 12/15/24 15:13
Alkaline Phosphatase 56 U/L (38-126) 12/15/24 15:
Data Reviewed
-
Lab Data: Labs Reviewed by me (WBC 13.6, Neut 86.2)
Impression/Plan
-
IMPRESSION/PLAN:
#cellulitis RLE
WBC 13.6, Neut 86.2
- Admit to med/surg
- IV cefazolin
- IVF
- supportive care
- consider ID consult if no improvement
#Hypertension
- continue indapamide and losartan
#DM-II
- continue metformin
#ASCVD
#Dyslipidemia
- continue aspirin, clopidogrel and rosuvastatin
#Obesity
- affects all aspects of care
- encourage balanced diet and exercise to promote weight loss
#DJD
Code status: full code
DVT prophylaxis: Lovenox Sq
[2024-12-15] MEDS: TYLENOL 650 MG PO ×2 (18:19→23:07)
[2024-12-15] MEDS: NSS 1000 IV ×2 (18:21→20:58)
[2024-12-15] MEDS: ZOSYN 100 IV (18:22)
--- NOTE | 2024-12-15 19:22 | W.PN.UPDATE ---
Update Note
Progress Note Update
This is an addendum to H&P written by Zena Castrejon on 12/15/2024. �Patient seen and examined in dependently with [employer]TER.
69-year-old male past medical history of hypertension, CAD status post stent, diabetes presenting with fever and redness of his right lower extremity. �History of cellulitis 6 years ago. �No recent trauma did have an injury to his right lower
extremity from a soccer ball hitting his leg in his childhood. �He did have cellulitis of this lower extremity a few times in the past.
No prior history of MRSA.
Fever 100.1.
Labs show leukocytosis.
Patient with recurrent cellulitis of right lower extremity. �Check blood cultures. �IV fluids. �Cefazolin.
[2024-12-15] MEDS: VANCOCIN 540 MG IV (19:41)
[2024-12-15] MEDS: PROSCAR 5 MG PO (23:07)
[2024-12-15] MEDS: FLOMAX 0.4 MG PO (23:07)
[2024-12-15] MEDS: GLUCOPHAGE 500 MG PO (23:07)
[2024-12-15] MEDS: DICLOFENAC 1% TOPICAL GEL 100 GRAM TOPICAL (23:08)
--- NOTE | 2024-12-15 23:19 | PTCARENOTE ---
pt with rigors and chills, temp taken it was 102. This RN gave PRN tylenol. Chills and rigors have since stopped. Will continue to monitor
--- NOTE | 2024-12-16 00:57 | PTCARENOTE ---
Pt's vitals taken at 2351, oral temp was 103 after receiving tylenol about an hour before. This RN gave pt an ice pack for his head and rechecked axillary temp around 0055 and it was 102.1. Reached out to DARK ROOM ATTENDANT to see what to do next.
[2024-12-16] MEDS: TYLENOL 325 MG PO (01:16)
[2024-12-16] MEDS: ANCEF 10 IV ×3 (06:34→21:17)
[2024-12-16 06:37] LABS: Hematocrit 34.3 % (39.0-52.0); Hemoglobin 12.2 g/dL (13.0-18.0); Mean Corp Hgb Conc. 35.6 g/dL (33.0-37.0); Mean Corpuscular Hgb 28.9 pg (27.0-31.0); Mean Corpuscular Volume 81.3 fL (80.0-94.0); Mean Platelet Volume 9.4 fL (7.4-10.4); Platelet Count 138 10^3/uL (130-400); Red Blood Cell Count 4.22 10^6/uL (4.70-6.10); Red Cell Dist. Width 13.1 % (11.5-14.5)
[2024-12-16 07:00] VITALS: BP 97/38
[2024-12-16 07:19] LABS: Blood Urea Nitrogen 16 mg/dl (9-20); Calcium 8.9 mg/dl (8.4-10.2); Carbon Dioxide 26 mmol/L (22-30); Chloride 107 mmol/L (98-107); Estimated Creatinine Clearance 86 ml/min; Glucose 160 mg/dl (70-99); Potassium 3.4 mmol/L (3.5-5.1); Sodium 141 mmol/L (135-145); eGFR > 60.00
[2024-12-16 07:50] VITALS: BP 106/55
[2024-12-16] MEDS: PLAVIX 75 MG PO (07:51)
[2024-12-16] MEDS: NSS 1000 IV ×2 (07:51→18:38)
[2024-12-16] MEDS: NORVASC 10 MG PO (07:51)
[2024-12-16] MEDS: GLUCOPHAGE 500 MG PO ×2 (07:52→20:45)
[2024-12-16] MEDS: TYLENOL 650 MG PO ×2 (07:57→17:42)
[2024-12-16] MEDS: LOZOL 1.25 MG PO (09:25)
[2024-12-16] MEDS: KCL ELIXIR 40 MEQ PO (09:25)
[2024-12-16] MEDS: COZAAR 100 MG PO (11:25)
[2024-12-16 11:26] VITALS: BP 118/63
--- NOTE | 2024-12-16 13:04 | CM ---
Met with patient to obtain information for assessment. Patient stated that he lives in a two story single home with no steps to enter with his spouse and son. He described himself as independent with all ADLs, personal care, dressing and bathing.
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 Patient can drive and can get to his appointments and do all of his own shopping. Patient denied any DME in his home. He has never been to a SNF or had VN.
Patient has a prescription plan and uses, [facility] [place] for all of his medications.
His PCP is, Sg Bradshaw.
OBS letter provided, reviewed and patient signed.
Plan: Case management will continue to follow and assist with discharge planning. Will watch for any ABX needs.
--- NOTE | 2024-12-16 13:36 | W.PN.HOSP.TC ---
Today's Communication/Plan
-
iv abx
esr/crp
XR
f/u cultures
Assessment / Plan
Assessment / Plan
Physical Exam
General: Well Developed, Well Nourished, No Apparent Distress, Comfortable and Conversant
HEENT: NormoCephalic, Moist mucous membranes, Atraumatic, [place] Conjunctivae, Nose Appears Normal and Ears Appear Normal
Respiratory: Clear
Cardiac: S1/S2 and Regular Rhythm
Breast: Deferred by me
GI: Soft, Non Tender, Non Distended and Normal Bowel Sounds
Rectal: Deferred by Provider
Genito-urinary: Deferred by me
Musculoskeletal: No Clubbing, No Cyanosis and No Edema
Skin: Warm, IV/Catheter Site and Other (RLE erythema and warm to touch; improved boundaries )
Neuro: Awake, Alert, AO x 3 and Nonfocal/grossly intact
Psych: Calm and Intact Judgment/Insight
#cellulitis RLE
#Sepsis
- IV cefazolin
- IVF
- supportive care
- F/u cultures
-Add on XRs
-Add on ESR/CRP
#Hypokalemia
-monitor and replete
#Hypertension
- continue indapamide and losartan
#DM-II
- continue metformin
#ASCVD
#Dyslipidemia
- continue aspirin, clopidogrel and rosuvastatin
#Obesity
- affects all aspects of care
- encourage balanced diet and exercise to promote weight loss
#DJD
Code status: full code
DVT prophylaxis: Lovenox Sq
Anticipated Discharge: 24 - 48 hours
Subjective/Interval History
-
Date of Service: December 16, 2024
Borders-improved, erythema slightly increased from yesterday as per patient
Objective Data
-
Labs:
Laboratory Results
12/16/24
06:12
WBC 10.0
Hgb 12.2 L
Hct 34.3 L
Plt Count 138
Sodium 141
Potassium 3.4 L
Chloride 107
Carbon Dioxide 26
BUN 16
Creatinine 0.9
Glucose 160 H
Calcium 8.9
Vital Signs:
Vital Signs
Temp Pulse Resp BP Pulse Ox
98.1 F 82 16 118/63 100
12/16/24 11:26 12/16/24 11:26 12/16/24 11:26 12/16/24 11:26 12/16/24 07:30
I&O
12/15/24 12/16/24 12/17/24
06:59 06:59 06:59
Intake Total 0 / 0
Balance 0 / 0
Review of Systems
-
History Source: Patient
All other systems: Not reviewed unless documented
Data Reviewed
-
Labs: Labs Reviewed by me
[2024-12-16 13:39] LABS: Erythrocyte Sed Rate 15 mm/hour (0-20)
[2024-12-16 15:05] VITALS: BP 123/64
[2024-12-16 17:18] LABS: Glucose - Point of Care 174 mg/dl (70-99)
[2024-12-16] MEDS: ASPIR LOW (ENTERIC COATED) 81 MG PO (17:36)
[2024-12-16] MEDS: CRESTOR 10 MG PO (17:36)
[2024-12-16] MEDS: LOVENOX 40 MG SC (17:36)
[2024-12-16 20:59] LABS: Glucose - Point of Care 156 mg/dl (70-99)
[2024-12-16] MEDS: FLOMAX 0.4 MG PO (21:17)
[2024-12-16] MEDS: PROSCAR 5 MG PO (21:17)
[2024-12-16 22:19] LABS: Hepatitis C Antibody Negative (Negative)
[2024-12-16 23:09] VITALS: BP 111/60
[2024-12-17] MEDS: ANCEF 10 IV ×3 (05:57→21:28)
[2024-12-17 07:24] LABS: Hematocrit 31.3 % (39.0-52.0); Hemoglobin 10.8 g/dL (13.0-18.0); Mean Corp Hgb Conc. 34.5 g/dL (33.0-37.0); Mean Corpuscular Hgb 28.2 pg (27.0-31.0); Mean Corpuscular Volume 81.7 fL (80.0-94.0); Mean Platelet Volume 9.4 fL (7.4-10.4); Platelet Count 139 10^3/uL (130-400); Red Blood Cell Count 3.83 10^6/uL (4.70-6.10); Red Cell Dist. Width 12.9 % (11.5-14.5); White Blood Cell Count 9.4 10^3/uL (4.8-10.8)
[2024-12-17 07:42] LABS: ALT (SGPT) 16 U/L (0-50); AST (SGOT) 18 U/L (17-59); Albumin 3.3 g/dl (3.5-5.0); Alkaline Phosphatase 50 U/L (38-126); Blood Urea Nitrogen 16 mg/dl (9-20); Calcium 8.7 mg/dl (8.4-10.2); Carbon Dioxide 24 mmol/L (22-30); Chloride 108 mmol/L (98-107); Estimated Creatinine Clearance 86 ml/min; Glucose 138 mg/dl (70-99); Magnesium 1.7 mg/dl (1.6-2.3); Potassium 3.5 mmol/L (3.5-5.1); Sodium 139 mmol/L (135-145); Total Bilirubin 0.5 mg/dl (0.2-1.3); Total Protein 6.1 g/dl (6.3-8.2); eGFR > 60.00
[2024-12-17 07:55] VITALS: BP 134/63
[2024-12-17 07:55] LABS: Glucose - Point of Care 116 mg/dl (70-99)
[2024-12-17] MEDS: GLUCOPHAGE 500 MG PO ×2 (08:50→19:59)
[2024-12-17] MEDS: NORVASC 10 MG PO (08:50)
[2024-12-17] MEDS: PLAVIX 75 MG PO (08:51)
[2024-12-17] MEDS: LOZOL 1.25 MG PO (08:51)
[2024-12-17] MEDS: NSS 1000 IV ×2 (10:32→21:33)
[2024-12-17 12:46] LABS: Glucose - Point of Care 129 mg/dl (70-99)
[2024-12-17 13:34] VITALS: BP 114/71
[2024-12-17] MEDS: COZAAR 100 MG PO (13:35)
--- NOTE | 2024-12-17 13:55 | W.PN.HOSP.TC ---
Today's Communication/Plan
-
Continue IV antibiotics
Follow-up blood cultures
Assessment / Plan
Assessment / Plan
Physical Exam
General: Well Developed, Well Nourished, No Apparent Distress, Comfortable and Conversant
HEENT: NormoCephalic, Moist mucous membranes, Atraumatic, [place] Conjunctivae, Nose Appears Normal and Ears Appear Normal
Respiratory: Clear
Cardiac: S1/S2 and Regular Rhythm
Breast: Deferred by me
GI: Soft, Non Tender, Non Distended and Normal Bowel Sounds
Rectal: Deferred by Provider
Genito-urinary: Deferred by me
Musculoskeletal: No Clubbing, No Cyanosis and No Edema
Skin: Warm, IV/Catheter Site and Other (RLE erythema and warm to touch; improved boundaries )
Neuro: Awake, Alert, AO x 3 and Nonfocal/grossly intact
Psych: Calm and Intact Judgment/Insight
#cellulitis RLE, improving
#Sepsis
- IV cefazolin
- IVF
- supportive care
- F/u cultures
-Add on XRs
�ESR 15
� X-ray with no evidence of osteomyelitis
#Hypokalemia
-monitor and replete
#Hypertension
- continue indapamide and losartan
#DM-II
- continue metformin
#ASCVD
#Dyslipidemia
- continue aspirin, clopidogrel and rosuvastatin
#Obesity
- affects all aspects of care
- encourage balanced diet and exercise to promote weight loss
#DJD
Code status: full code
DVT prophylaxis: Lovenox Sq
Anticipated Discharge: 24 - 48 hours
Subjective/Interval History
-
Date of Service: December 17, 2024
Erythema and boundaries improving
Objective Data
-
Labs:
Laboratory Results
12/17/24
06:33
WBC 9.4
Hgb 10.8 L
Hct 31.3 L
Plt Count 139
Sodium 139
Potassium 3.5
Chloride 108 H
Carbon Dioxide 24
BUN 16
Creatinine 0.9
Glucose 138 H
Calcium 8.7
Total Bilirubin 0.5
AST 18
ALT 16
Alkaline Phosphatase 50
Vital Signs:
Vital Signs
Temp Pulse Resp BP Pulse Ox
99.3 F 76 16 114/71 95
12/17/24 07:55 12/17/24 13:35 12/17/24 07:55 12/17/24 13:35 12/17/24 07:55
I&O
12/16/24 12/17/24 12/18/24
06:59 06:59 06:59
Intake Total 0 / 0 960 / 960
Balance 0 / 0 960 / 960
Review of Systems
-
History Source: Patient
All other systems: Not reviewed unless documented
Data Reviewed
-
Diagnostic Radiology: Report Reviewed by me
Labs: Labs Reviewed by me
[2024-12-17 15:55] VITALS: BP 120/66
[2024-12-17 16:59] LABS: Glucose - Point of Care 131 mg/dl (70-99)
[2024-12-17] MEDS: LOVENOX SC (18:46)
[2024-12-17] MEDS: PROSCAR 5 MG PO (19:58)
[2024-12-17] MEDS: FLOMAX 0.4 MG PO (19:58)
[2024-12-17] MEDS: CRESTOR 10 MG PO (19:59)
[2024-12-17] MEDS: ASPIR LOW (ENTERIC COATED) 81 MG PO (19:59)
[2024-12-17 21:50] LABS: Glucose - Point of Care 154 mg/dl (70-99)
[2024-12-17 23:31] VITALS: BP 103/62
--- NOTE | 2024-12-18 04:20 | DOWNTIME ---
Addendum entered by Zohreh Lemus RN 12/18/24 14:19:
Correction: Downtime was 12/18/2024 from 0100 to 12/18/2024 at 0415
Original Note:
There was a [employer] Downtime on 12/17/2024 from 0100 to 12/18/2024 at 0415. Downtime documentation of patient's care, including medication administrations, has been reconciled in the electronic record per guidelines. Refer to the
patient's paper chart under the miscellaneous tab to see printed paper medication records and downtime forms.
[2024-12-18] MEDS: ANCEF 10 IV ×3 (05:15→20:57)
[2024-12-18 07:23] LABS: Hematocrit 31.6 % (39.0-52.0); Hemoglobin 10.9 g/dL (13.0-18.0); Mean Corp Hgb Conc. 34.5 g/dL (33.0-37.0); Mean Corpuscular Hgb 28.3 pg (27.0-31.0); Mean Corpuscular Volume 82.1 fL (80.0-94.0); Mean Platelet Volume 9.6 fL (7.4-10.4); Platelet Count 162 10^3/uL (130-400); Red Blood Cell Count 3.85 10^6/uL (4.70-6.10); White Blood Cell Count 8.9 10^3/uL (4.8-10.8)
[2024-12-18 07:52] LABS: Glucose - Point of Care 122 mg/dl (70-99)
[2024-12-18 07:58] LABS: ALT (SGPT) 14 U/L (0-50); AST (SGOT) 18 U/L (17-59); Albumin 3.5 g/dl (3.5-5.0); Alkaline Phosphatase 52 U/L (38-126); Blood Urea Nitrogen 12 mg/dl (9-20); Calcium 8.8 mg/dl (8.4-10.2); Carbon Dioxide 26 mmol/L (22-30); Chloride 109 mmol/L (98-107); Estimated Creatinine Clearance 97 ml/min; Glucose 122 mg/dl (70-99); Potassium 3.6 mmol/L (3.5-5.1); Sodium 141 mmol/L (135-145); Total Bilirubin 0.4 mg/dl (0.2-1.3); Total Protein 6.3 g/dl (6.3-8.2); eGFR > 60.00
[2024-12-18 08:02] VITALS: BP 148/74
[2024-12-18] MEDS: LOZOL 1.25 MG PO (08:35)
[2024-12-18] MEDS: PLAVIX 75 MG PO (08:36)
[2024-12-18] MEDS: NORVASC 10 MG PO (08:37)
[2024-12-18] MEDS: GLUCOPHAGE 500 MG PO ×2 (08:37→20:57)
[2024-12-18 12:12] LABS: Glucose - Point of Care 147 mg/dl (70-99)
[2024-12-18] MEDS: COZAAR 100 MG PO (12:20)
--- NOTE | 2024-12-18 13:39 | W.PN.HOSP.TC ---
Today's Communication/Plan
-
Continue IV antibiotics
Follow-up blood cultures
Assessment / Plan
Assessment / Plan
Physical Exam
General: Well Developed, Well Nourished, No Apparent Distress, Comfortable and Conversant
HEENT: NormoCephalic, Moist mucous membranes, Atraumatic, [place] Conjunctivae, Nose Appears Normal and Ears Appear Normal
Respiratory: Clear
Cardiac: S1/S2 and Regular Rhythm
Breast: Deferred by me
GI: Soft, Non Tender, Non Distended and Normal Bowel Sounds
Rectal: Deferred by Provider
Genito-urinary: Deferred by me
Musculoskeletal: No Clubbing, No Cyanosis and No Edema
Skin: Warm, IV/Catheter Site and Other (RLE erythema and warm to touch; improved boundaries )
Neuro: Awake, Alert, AO x 3 and Nonfocal/grossly intact
Psych: Calm and Intact Judgment/Insight
#cellulitis RLE, improving
#Sepsis
- IV cefazolin
- IVF
- supportive care
- F/u cultures
�ESR 15
� X-ray with no evidence of osteomyelitis
#Hypokalemia
-monitor and replete
#Hypertension
- continue indapamide and losartan
#DM-II
- continue metformin
#ASCVD
#Dyslipidemia
- continue aspirin, clopidogrel and rosuvastatin
#Obesity
- affects all aspects of care
- encourage balanced diet and exercise to promote weight loss
#DJD
Code status: full code
DVT prophylaxis: Lovenox Sq
Anticipated Discharge: 24 - 48 hours
Subjective/Interval History
-
Date of Service: December 18, 2024
erythema improved, along with boundaries rescinding slowly
Objective Data
-
Labs:
Laboratory Results
12/18/24
06:16
WBC 8.9
Hgb 10.9 L
Hct 31.6 L
Plt Count 162
Sodium 141
Potassium 3.6
Chloride 109 H
Carbon Dioxide 26
BUN 12
Creatinine 0.8
Glucose 122 H
Calcium 8.8
Total Bilirubin 0.4
AST 18
ALT 14
Alkaline Phosphatase 52
Vital Signs:
Vital Signs
Temp Pulse Resp BP Pulse Ox
98 F 82 18 129/71 98
12/18/24 08:02 12/18/24 12:20 12/18/24 08:02 12/18/24 12:20 12/18/24 11:09
I&O
12/17/24 12/18/24 12/19/24
06:59 06:59 06:59
Intake Total 960 / 960 3600 / 3600
Output Total 600 / 600
Balance 960 / 960 3000 / 3000
Review of Systems
-
History Source: Patient
All other systems: Not reviewed unless documented
Data Reviewed
-
Diagnostic Radiology: Report Reviewed by me
Labs: Labs Reviewed by me
[2024-12-18 16:05] VITALS: BP 136/63
[2024-12-18 16:46] LABS: Glucose - Point of Care 149 mg/dl (70-99)
--- NOTE | 2024-12-18 17:15 | CM ---
Patient continues on IV abx. Per activity notes has been independently navigating room. Will continue to watch for home IV ABX needs.
Plan: Case management will continue to follow and assist with discharge planning. Home when cleared for discharge.
[2024-12-18] MEDS: LOVENOX SC (18:13)
[2024-12-18] MEDS: ASPIR LOW (ENTERIC COATED) 81 MG PO (18:15)
[2024-12-18] MEDS: CRESTOR 10 MG PO (18:15)
[2024-12-18] MEDS: FLOMAX 0.4 MG PO (20:57)
[2024-12-18] MEDS: PROSCAR 5 MG PO (20:57)
[2024-12-18 21:33] LABS: Glucose - Point of Care 119 mg/dl (70-99)
[2024-12-18 23:27] VITALS: BP 129/64
[2024-12-19] MEDS: ANCEF 10 IV ×3 (05:10→20:59)
[2024-12-19 07:09] VITALS: BP 126/72
[2024-12-19 07:59] LABS: Glucose - Point of Care 132 mg/dl (70-99)
[2024-12-19 08:17] LABS: Hematocrit 36.7 % (39.0-52.0); Hemoglobin 12.8 g/dL (13.0-18.0); Mean Corp Hgb Conc. 34.9 g/dL (33.0-37.0); Mean Corpuscular Hgb 27.9 pg (27.0-31.0); Mean Platelet Volume 9.1 fL (7.4-10.4); Platelet Count 186 10^3/uL (130-400); Red Blood Cell Count 4.59 10^6/uL (4.70-6.10); Red Cell Dist. Width 12.9 % (11.5-14.5); White Blood Cell Count 7.8 10^3/uL (4.8-10.8)
[2024-12-19] MEDS: LOZOL 1.25 MG PO (08:39)
[2024-12-19] MEDS: PLAVIX 75 MG PO (08:40)
[2024-12-19] MEDS: GLUCOPHAGE 500 MG PO (08:40)
[2024-12-19] MEDS: NORVASC 10 MG PO (08:40)
[2024-12-19 09:44] LABS: ALT (SGPT) 20 U/L (0-50); AST (SGOT) 23 U/L (17-59); Albumin 4.1 g/dl (3.5-5.0); Alkaline Phosphatase 59 U/L (38-126); Blood Urea Nitrogen 14 mg/dl (9-20); Calcium 9.5 mg/dl (8.4-10.2); Carbon Dioxide 26 mmol/L (22-30); Chloride 105 mmol/L (98-107); Estimated Creatinine Clearance 111 ml/min; Glucose 126 mg/dl (70-99); Potassium 3.7 mmol/L (3.5-5.1); Sodium 141 mmol/L (135-145); Total Bilirubin 0.5 mg/dl (0.2-1.3); Total Protein 7.3 g/dl (6.3-8.2); eGFR > 60.00
[2024-12-19 12:15] LABS: Glucose - Point of Care 133 mg/dl (70-99)
[2024-12-19] MEDS: COZAAR 100 MG PO (12:39)
--- NOTE | 2024-12-19 14:13 | W.PN.HOSP.TC ---
Today's Communication/Plan
-
add BRENDA wraps for edema
on IV cefazolin for now - if no improvement will need to add/change abx
Assessment / Plan
Assessment / Plan
Physical Exam
General: Well Developed, Well Nourished, No Apparent Distress, Comfortable and Conversant
HEENT: NormoCephalic, Moist mucous membranes, Atraumatic, [place] Conjunctivae, Nose Appears Normal and Ears Appear Normal
Respiratory: Clear
Cardiac: S1/S2 and Regular Rhythm
Breast: Deferred by me
GI: Soft, Non Tender, Non Distended and Normal Bowel Sounds
Rectal: Deferred by Provider
Genito-urinary: Deferred by me
Musculoskeletal: No Clubbing, No Cyanosis and No Edema
Skin: Warm, IV/Catheter Site and Other (RLE erythema and warm to touch; improved boundaries )
Neuro: Awake, Alert, AO x 3 and Nonfocal/grossly intact
Psych: Calm and Intact Judgment/Insight
#cellulitis RLE, improving
#Sepsis
- IV cefazolin
- IVF
-Add BRENDA wraps
- supportive care
- F/u cultures
�ESR 15
- add on crp again, trend
� X-ray with no evidence of osteomyelitis
#Hypokalemia
-monitor and replete
#Hypertension
- continue indapamide and losartan
#DM-II
- continue metformin
#ASCVD
#Dyslipidemia
- continue aspirin, clopidogrel and rosuvastatin
#Obesity
- affects all aspects of care
- encourage balanced diet and exercise to promote weight loss
#DJD
Code status: full code
DVT prophylaxis: Lovenox Sq
Anticipated Discharge: Within 24 hours
Subjective/Interval History
-
Date of Service: December 19, 2024
erythema no changes from yesterday, add BRENDA wraps
Objective Data
-
Labs:
Laboratory Results
12/19/24
07:38
WBC 7.8
Hgb 12.8 L
Hct 36.7 L
Plt Count 186
Sodium 141
Potassium 3.7
Chloride 105
Carbon Dioxide 26
BUN 14
Creatinine 0.7
Glucose 126 H
Calcium 9.5
Total Bilirubin 0.5
AST 23
ALT 20
Alkaline Phosphatase 59
Vital Signs:
Vital Signs
Temp Pulse Resp BP Pulse Ox
98.2 F 78 18 114/69 98
12/19/24 07:09 12/19/24 12:39 12/19/24 07:09 12/19/24 12:39 12/19/24 09:07
I&O
12/18/24 12/19/24 12/20/24
06:59 06:59 06:59
Intake Total 3600 / 3600 480 / 480
Output Total 600 / 600
Balance 3000 / 3000 480 / 480
Review of Systems
-
History Source: Patient
All other systems: Not reviewed unless documented
Data Reviewed
-
Diagnostic Radiology: Report Reviewed by me
Labs: Labs Reviewed by me
[2024-12-19 15:13] VITALS: BP 118/66
[2024-12-19 16:49] LABS: Glucose - Point of Care 158 mg/dl (70-99)
--- NOTE | 2024-12-19 17:18 | PTCARENOTE ---
Blood sugar 158 for dinner. Pt refused. He states he has never had insulin and is scared of an allergic reaction. Educated pt on importance of insulin, high blood sugar, and allergic reactons. Pt states understanding. Still refusing. See MAR.
[2024-12-19] MEDS: ASPIR LOW (ENTERIC COATED) 81 MG PO (18:28)
[2024-12-19] MEDS: CRESTOR 10 MG PO (18:29)
[2024-12-19] MEDS: LOVENOX SC (18:29)
[2024-12-19] MEDS: GLUCOPHAGE PO (20:56)
[2024-12-19] MEDS: PROSCAR 5 MG PO (20:58)
[2024-12-19] MEDS: FLOMAX 0.4 MG PO (20:58)
[2024-12-19 21:50] LABS: Glucose - Point of Care 120 mg/dl (70-99)
[2024-12-19 23:36] VITALS: BP 125/69
[2024-12-20] MEDS: ANCEF 10 IV ×3 (05:11→20:59)
[2024-12-20 07:00] VITALS: BP 134/85
[2024-12-20 07:58] LABS: Glucose - Point of Care 127 mg/dl (70-99)
[2024-12-20 08:02] LABS: Hematocrit 34.8 % (39.0-52.0); Hemoglobin 12.5 g/dL (13.0-18.0); Mean Corp Hgb Conc. 35.9 g/dL (33.0-37.0); Mean Corpuscular Hgb 28.5 pg (27.0-31.0); Mean Corpuscular Volume 79.5 fL (80.0-94.0); Mean Platelet Volume 9.2 fL (7.4-10.4); Platelet Count 195 10^3/uL (130-400); Red Blood Cell Count 4.38 10^6/uL (4.70-6.10); Red Cell Dist. Width 12.7 % (11.5-14.5); White Blood Cell Count 8.9 10^3/uL (4.8-10.8)
[2024-12-20] MEDS: LOZOL 1.25 MG PO (08:10)
[2024-12-20] MEDS: NORVASC 10 MG PO (08:11)
[2024-12-20] MEDS: GLUCOPHAGE 500 MG PO ×2 (08:11→20:59)
[2024-12-20] MEDS: PLAVIX 75 MG PO (08:11)
[2024-12-20 08:42] LABS: ALT (SGPT) 25 U/L (0-50); AST (SGOT) 31 U/L (17-59); Albumin 3.8 g/dl (3.5-5.0); Alkaline Phosphatase 66 U/L (38-126); Blood Urea Nitrogen 16 mg/dl (9-20); Calcium 9.3 mg/dl (8.4-10.2); Carbon Dioxide 24 mmol/L (22-30); Chloride 106 mmol/L (98-107); Estimated Creatinine Clearance 111 ml/min; Glucose 131 mg/dl (70-99); Potassium 3.7 mmol/L (3.5-5.1); Sodium 139 mmol/L (135-145); Total Bilirubin 0.5 mg/dl (0.2-1.3); Total Protein 6.7 g/dl (6.3-8.2); eGFR > 60.00
[2024-12-20] MEDS: COZAAR 100 MG PO (11:41)
[2024-12-20 12:09] LABS: Glucose - Point of Care 113 mg/dl (70-99)
--- NOTE | 2024-12-20 13:58 | W.PN.HOSP.TC ---
Today's Communication/Plan
-
IV Cefazolin and SRINIVAS Compressions with great improvement in erythema/margins
Patient adamantly requesting infectious disease consult despite education; consulted
Assessment / Plan
Assessment / Plan
Physical Exam
General: Well Developed, Well Nourished, No Apparent Distress, Comfortable and Conversant
HEENT: NormoCephalic, Moist mucous membranes, Atraumatic, [place] Conjunctivae, Nose Appears Normal and Ears Appear Normal
Respiratory: Clear
Cardiac: S1/S2 and Regular Rhythm
Breast: Deferred by me
GI: Soft, Non Tender, Non Distended and Normal Bowel Sounds
Rectal: Deferred by Provider
Genito-urinary: Deferred by me
Musculoskeletal: No Clubbing, No Cyanosis and No Edema
Skin: Warm, IV/Catheter Site and Other (RLE erythema and warm to touch; improved boundaries and erythema)
Neuro: Awake, Alert, AO x 3 and Nonfocal/grossly intact
Psych: Calm and Intact Judgment/Insight
#cellulitis RLE, improving
#Sepsis
- IV cefazolin
- IVF
- SRINIVAS wraps
- supportive care
- F/u cultures
�ESR 15
- CRP 20 down 118 ->24
� X-ray with no evidence of osteomyelitis
�Patient adamantly requesting infectious disease consult despite education; consulted
#Hypokalemia
-monitor and replete
#Hypertension
- continue indapamide and losartan
#DM-II
- continue metformin
#ASCVD
#Dyslipidemia
- continue aspirin, clopidogrel and rosuvastatin
#Obesity
- affects all aspects of care
- encourage balanced diet and exercise to promote weight loss
#DJD
Code status: full code
DVT prophylaxis: Lovenox Sq
Anticipated Discharge: Within 24 hours
Subjective/Interval History
-
Date of Service: December 20, 2024
Cellulitis improved with Srinivas compressions
Objective Data
-
Labs:
Laboratory Results
12/20/24
07:07
WBC 8.9
Hgb 12.5 L
Hct 34.8 L
Plt Count 195
Sodium 139
Potassium 3.7
Chloride 106
Carbon Dioxide 24
BUN 16
Creatinine 0.7
Glucose 131 H
Calcium 9.3
Total Bilirubin 0.5
AST 31
ALT 25
Alkaline Phosphatase 66
Vital Signs:
Vital Signs
Temp Pulse Resp BP Pulse Ox
97.6 F 76 16 120/71 98
12/20/24 07:00 12/20/24 11:41 12/20/24 07:00 12/20/24 11:41 12/20/24 08:20
I&O
12/19/24 12/20/24 12/21/24
06:59 06:59 06:59
Intake Total 480 / 480 960 / 960
Balance 480 / 480 960 / 960
Review of Systems
-
History Source: Patient
All other systems: Not reviewed unless documented
Data Reviewed
-
Diagnostic Radiology: Report Reviewed by me
Labs: Labs Reviewed by me
--- NOTE | 2024-12-20 14:58 | CON.ID ---
Consultation
-
Date/Time Consultation Requested: December 20, 2024 1401
Date/Time Consultation Performed: December 20, 2024 1500
Requesting Provider: Dr. Zane Correa
Performing Provider: Dr. Heidy Woodson
Reason for Consultation: Cellulitis
Chief Complaint / Past History
Chief Complaint
Red and swollen leg
History of Present Illness
69-year-old male with history of diabetes mellitus, CAD who presented to the hospital on December 15 due to right leg swelling and redness. His is at bedside. He states that on Monday he developed sudden onset of fever up to 103 and chills.
His right leg was not red at the time. On Monday, his noted mild redness from above the right ankle up the wong. He continued to have fever and therefore came to the ER. His temperature was 102, white count 13.6. His right leg became more
red streaking up above the knee and very swollen. X-ray no bony abnormality. He was started on IV cefazolin. Fever resolved. Leukocytosis resolved. Per patient there was slow improvement of the right leg cellulitis. Srinivas wrap started yesterday.
Today there is mild improvement of the right leg. Patient is very concerned due to the slow response. He states he had cellulitis twice 10 years ago and responded more quickly to broad-spectrum antibiotics. He denies any recent trauma or
injury. He had remote h/o of trauma to RLE requirinng hematoma evacuation at age 17.
Past History
Additional Past Medical History:
DM-II
Dyslipidemia
HTN
CAD s/p stent
DJD
RLE cellulitis
Obesity BMI 36
Cholecystectomy
Allergy History:
steroids Allergy (Uncoded 08/27/24 21:46)
Swelling
Medications Reviewed: Yes
Current Antibiotics:
Cefazolin day 5
Social History
Tobacco: Former Smoker
Alcohol: Occasional
Drug: None
Personal:
Living: With Family
Review of Systems
Review of Systems
HEENT: Negative Sinus Problems
Cardiovascular: Negative Chest Pain or Dyspnea
Respiratory: Negative Dyspnea, Cough or Sputum Production
Gasteroenterology: Negative Nausea, Vomiting or Diarrhea
Genital / Urological: Negative Dysuria or Flank Pain
All systems: All other systems were reviewed and were negative
Vital Signs
Temp Pulse Resp BP Pulse Ox
97.6 F 76 16 120/71 98
12/20/24 07:00 12/20/24 11:41 12/20/24 07:00 12/20/24 11:41 12/20/24 08:20
Physical Exam
Physical Exam
Constitutional: No Acute Distress and Obese
Eyes: No Conjunctival Hemorrhage and Sclera Anicteric
Cardiovascular: Regular Rate and S1/S2
Pulmonary: Clear
Gastrointestinal: Soft, Non Tender, Non Distended and Normal Bowel Sounds
Extremities: Edema (RLE 1+ edema), Erythema (dark erythema from above ankle to knee, mild warmth. ) and Other (Tinea between 4th and 5th toe web. )
Neurological: AO x 3
Lab / Diagnostic Study Results
12/20/24 07:07
12/20/24 07:07
Abs Immat Gran (auto) 0.1 10^3/uL (0-0.05) H 12/15/24 15:13
Absolute Neuts (auto) 11.7 10^3/uL (1.4-6.5) H 12/15/24 15:13
Absolute Lymphs (auto) 1.2 10^3/uL (1.2-3.4) 12/15/24 15:13
Absolute Monos (auto) 0.6 10^3/uL (0.1-0.6) 12/15/24 15:13
Absolute Basos (auto) 0.0 10^3/uL (0-0.2) 12/15/24 15:13
Immature Gran % 0.4 % (0-0.5) 12/15/24 15:13
Neutrophils % 86.2 % (42.2-75.2) H 12/15/24 15:13
Lymphocytes % 8.5 % (20.5-51.1) L 12/15/24 15:13
Monocytes % 4.6 % (1.7-9.3) 12/15/24 15:
Eosinophils % 0.0 % (0-6) 12/15/24 15:
Basophils % 0.3 % (0-2) 12/15/24 15:
ESR 15 mm/hour (0-20) 12/16/24 06:12
Lactic Acid Cancelled 12/15/24 15:15
C-Reactive Protein 24.30 mg/L (0.0-10.00) H 12/20/24 07:07
Microbiology Results
Micro:
12/15/24 18:18 Blood Culture - Preliminary
Blood/Venous No Growth in 4 days- Final report to follow
12/15/24 15:13 Blood Culture - Preliminary
Blood/Venous No Growth in 4 days- Final report to follow
12/16/24 06:40 MRSA Screen - Final
Nose No Methicillin Resistant Staphylococcus aureus isolated.
Assessment / Plan
# Nonpurulent cellulitis of RLE
- Agree with SRINIVAS-WRAp compression
- Elevate RLE
- Continue cefazolin. Will reassess tomorrow
# Tinea pedis- may be source of cellulitis
- Apply topical clotrimazole to toe web
# Fever resolved
# Leukocytosis resolved
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
DM-II
Dyslipidemia
HTN
CAD s/p stent
DJD
RLE cellulitis
Obesity BMI 36
Cholecystectomy
Care Review
Plan reviewed with: Physician (Dr. Correa)
[2024-12-20 17:15] LABS: Glucose - Point of Care 132 mg/dl (70-99)
[2024-12-20] MEDS: CRESTOR 10 MG PO (18:11)
[2024-12-20] MEDS: ASPIR LOW (ENTERIC COATED) 81 MG PO (18:11)
[2024-12-20] MEDS: LOVENOX SC (18:15)
[2024-12-20] MEDS: FLOMAX 0.4 MG PO (20:59)
[2024-12-20] MEDS: PROSCAR 5 MG PO (20:59)
[2024-12-20] MEDS: LOTRIMIN 1% CREAM 1 APPLIC TOPICAL (21:00)
[2024-12-20 21:17] LABS: Glucose - Point of Care 130 mg/dl (70-99)
[2024-12-20 23:23] VITALS: BP 125/67
[2024-12-21] MEDS: ANCEF 10 IV (06:10)
[2024-12-21 06:59] LABS: Hematocrit 36.5 % (39.0-52.0); Hemoglobin 12.9 g/dL (13.0-18.0); Mean Corp Hgb Conc. 35.3 g/dL (33.0-37.0); Mean Corpuscular Hgb 27.9 pg (27.0-31.0); Platelet Count 218 10^3/uL (130-400); Red Blood Cell Count 4.62 10^6/uL (4.70-6.10); Red Cell Dist. Width 12.8 % (11.5-14.5); White Blood Cell Count 8.8 10^3/uL (4.8-10.8)
[2024-12-21 07:23] LABS: ALT (SGPT) 28 U/L (0-50); AST (SGOT) 29 U/L (17-59); Alkaline Phosphatase 64 U/L (38-126); Blood Urea Nitrogen 19 mg/dl (9-20); Calcium 9.5 mg/dl (8.4-10.2); Carbon Dioxide 25 mmol/L (22-30); Chloride 107 mmol/L (98-107); Estimated Creatinine Clearance 97 ml/min; Glucose 127 mg/dl (70-99); Potassium 3.9 mmol/L (3.5-5.1); Sodium 139 mmol/L (135-145); Total Bilirubin 0.6 mg/dl (0.2-1.3); Total Protein 7.1 g/dl (6.3-8.2); eGFR > 60.00
[2024-12-21 07:50] VITALS: BP 121/85
[2024-12-21 07:57] LABS: Glucose - Point of Care 143 mg/dl (70-99)
[2024-12-21] MEDS: LOTRIMIN 1% CREAM 1 APPLIC TOPICAL (08:41)
[2024-12-21] MEDS: GLUCOPHAGE 500 MG PO (08:41)
[2024-12-21] MEDS: LOZOL 1.25 MG PO (08:41)
[2024-12-21] MEDS: PLAVIX 75 MG PO (08:42)
[2024-12-21] MEDS: NORVASC 10 MG PO (08:42)
--- NOTE | 2024-12-21 10:16 | W.PN.ID1 ---
Date of Service
Date of Service: December 21, 2024
Today's Communication
Can transition cefazolin to cephalexin 1000mg po q8h x 10 more days.
Assessment / Plan
# Nonpurulent cellulitis of RLE, improving
-Continue BRENDA-WRAp compression and Elevate RLE
- Can transition cefazolin to cephalexin 1000mg po q8h x 10 more days.
- Pt with remote h/o recurrent RLE cellulitis.
Discussed with patient and that there is no role for prophylactic PCNVK at this time since this is his first episode of cellulitis in five years.
If multiple cellulitis within a year, then prophylactic abx will be appropriate.
# Tinea pedis- may be source of cellulitis
- Apply topical clotrimazole to toe web
# Fever resolved
# Leukocytosis resolved
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
DM-II
Dyslipidemia
HTN
CAD s/p stent
DJD
RLE cellulitis
Obesity BMI 36
Cholecystectomy
Chief Complaint
-: Cellulitis
Subjective / Review of Systems
Feeling better.
Vital Signs / Physical Exam
Vital Signs
Vital Signs
Temp Pulse Resp BP Pulse Ox
97.6 F 89 16 121/85 98
12/21/24 07:50 12/21/24 07:50 12/21/24 07:50 12/21/24 07:50 12/21/24 07:50
Physical Exam
Constitutional: No Acute Distress and Comfortable
Cardiovascular: Regular Rate and S1/S2
Pulmonary: Clear
Gastrointestinal: Soft, Non Tender, Non Distended and Normal Bowel Sounds
Extremities: Edema (RLE decreasing) and Erythema (RLE erythema decreasing and receding from marked line.)
Neurological: AO x 3
Objective Data
Lab Data
Lab Results
12/21/24 06:30
12/21/24 06:30
ESR 15 mm/hour (0-20) 12/16/24 06:12
Estimated Creat Clear 97 ml/min 12/21/24 06:30
Lactic Acid Cancelled 12/15/24 15:15
Total Bilirubin 0.6 mg/dl (0.2-1.3) 12/21/24 06:30
AST 29 U/L (17-59) 12/21/24 06:30
ALT 28 U/L (0-50) 12/21/24 06:30
Alkaline Phosphatase 64 U/L (38-126) 12/21/24 06:30
C-Reactive Protein 24.30 mg/L (0.0-10.00) H 12/20/24 07:07
Most recent labs reviewed.
Micro Results:
12/15/24 18:18 Blood Culture - Final
Blood/Venous No Growth - Final Report
12/15/24 15:13 Blood Culture - Final
Blood/Venous No Growth - Final Report
12/16/24 06:40 MRSA Screen - Final
Nose No Methicillin Resistant Staphylococcus aureus isolated.
Care Review
Plan reviewed with: Physician (Dr. Correa)
--- NOTE | 2024-12-21 10:42 | W.PN.HOSP.TC ---
Addendum entered and electronically signed by Zane Correa MD 12/21/24 13:24:
[id number]
Original Note:
Today's Communication/Plan
-
Cephalexin 1000 mg every 8 hours for 10 more days
Continue clotrimazole topical
Follow PCP within 1 week
Assessment / Plan
Assessment / Plan
Physical Exam
General: Well Developed, Well Nourished, No Apparent Distress, Comfortable and Conversant
HEENT: NormoCephalic, Moist mucous membranes, Atraumatic, [place] Conjunctivae, Nose Appears Normal and Ears Appear Normal
Respiratory: Clear
Cardiac: S1/S2 and Regular Rhythm
Breast: Deferred by me
GI: Soft, Non Tender, Non Distended and Normal Bowel Sounds
Rectal: Deferred by Provider
Genito-urinary: Deferred by me
Musculoskeletal: No Clubbing, No Cyanosis and No Edema
Skin: Warm, IV/Catheter Site and Other (RLE erythema and warm to touch; greatly improved boundaries and erythema)
Neuro: Awake, Alert, AO x 3 and Nonfocal/grossly intact
Psych: Calm and Intact Judgment/Insight
#cellulitis RLE, improving
#Sepsis
- IV cefazolin�transition to cephalexin 1000 mg p.o. every 8 hours for 10 more days
- IVF
- BRENDA wraps
- supportive care
- F/u cultures�no growth to date
�ESR 15
- CRP 20 down 118 ->24
� X-ray with no evidence of osteomyelitis
�Patient adamantly requesting infectious disease consult despite education; consulted�appreciated
�If multiple cellulitis episodes within a year, then prophylactic antibiotics may be appropriate, otherwise no need for prophylactic antibiotics at this time.
#Tinea pedis
� May be source cellulitis
� Apply topical clotrimazole to the toe web
� Educated on clean hygiene, avoiding community showers as patient has been using them after using public pool
#Hypokalemia
-monitor and replete
#Hypertension
- continue indapamide and losartan
#DM-II
- continue metformin
#ASCVD
#Dyslipidemia
- continue aspirin, clopidogrel and rosuvastatin
#Obesity
- affects all aspects of care
- encourage balanced diet and exercise to promote weight loss
#DJD
Code status: full code
DVT prophylaxis: Lovenox Sq
More than 30 minutes spent in discharge including
Final examination of the patient
Summarizing hospital stay
Instructions for continuing care to all relevant caregivers
Preparation of discharge records, prescriptions, and referral forms
Total time spent (in minutes): 36
Anticipated Discharge: Today
Subjective/Interval History
-
Date of Service: December 21, 2024
Erythema and swelling greatly improved
Objective Data
-
Labs:
Laboratory Results
12/21/24
06:30
WBC 8.8
Hgb 12.9 L
Hct 36.5 L
Plt Count 218
Sodium 139
Potassium 3.9
Chloride 107
Carbon Dioxide 25
BUN 19
Creatinine 0.8
Glucose 127 H
Calcium 9.5
Total Bilirubin 0.6
AST 29
ALT 28
Alkaline Phosphatase 64
Vital Signs:
Vital Signs
Temp Pulse Resp BP Pulse Ox
97.6 F 89 16 121/85 98
12/21/24 07:50 12/21/24 07:50 12/21/24 07:50 12/21/24 07:50 12/21/24 07:50
I&O
12/20/24 12/21/24 12/22/24
06:59 06:59 06:59
Intake Total 960 / 960 540 / 540
Balance 960 / 960 540 / 540
Review of Systems
-
History Source: Patient
All other systems: Not reviewed unless documented
Data Reviewed
-
Diagnostic Radiology: Report Reviewed by me
Labs: Labs Reviewed by me
--- NOTE | 2024-12-21 10:44 | W.DS.TRANS ---
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
-
Discharge Instructions:
Discharge Diagnosis/Procedures Cellulitis
Diet Low Cholesterol,Low Fat,Diabetic, Carb
Controlled
Activity As tolerated
Blood Work cbc and bmp in 1 week with pcp
Instructions:
Stand-Alone Forms:
Changes to Home Medications: Yes
Discharge Medications:
DC Medications w/original date entered in [facility]
amlodipine 10 mg tablet 10 mg PO DAILY Blood Pressure 08/27/24
aspirin 81 mg capsule 81 mg PO QPM Blood Clot Prevention/Tx 08/27/24
clopidogrel 75 mg tablet (Plavix) 75 mg PO DAILY Blood Clot Prevention/Tx 08/27/24
finasteride 5 mg tablet 5 mg PO HS Urinary Issue 08/27/24
indapamide 1.25 mg tablet 1.25 mg PO DAILY 08/27/24
losartan 100 mg tablet 100 mg PO NOON Blood Pressure 08/27/24
metformin 500 mg tablet 500 mg PO BID Diabetes 08/27/24
rosuvastatin 10 mg tablet 10 mg PO QPM High Cholesterol 08/27/24
tamsulosin 0.4 mg capsule 0.4 mg PO HS Urinary Issue 08/27/24
cephalexin 500 mg capsule 1,000 mg (2 x 500 mg) PO Q8H 10 days #60 caps 12/21/24
clotrimazole 1 % topical cream (Athlete's Foot (clotrimazole)) 1 applic topical BID #90 grams 12/21/24
Home Medication Changes
cephalexin 500 mg capsule 1,000 mg (2 x 500 mg) PO Q8H 10 days #60 caps 12/21/24
clotrimazole 1 % topical cream (Athlete's Foot (clotrimazole)) 1 applic topical BID #90 grams 12/21/24
Pending Results: No
[2024-12-21 11:43] VITALS: BP 122/64
[2024-12-21] MEDS: COZAAR 100 MG PO (11:46)
--- NOTE | 2024-12-21 13:00 | PTCARENOTE ---
IV discontinued. Discharge paperwork printed and reviewed with patient who verbalized understanding. Pt transported off the floor via wheelchair by PCT with all belongings from the room.
--- NOTE | 2024-12-21 13:48 | CM ---
Patient with Dx cellulitis RLE, Sepsis. Room air. Per nurse; A/O, amb in room by self.
Met with patient who was preparing for discharge.
The patient says he feels ready for discharge home today. IMM completed.
His will transport him home.
No CM d/c needs identified.
Plan home today.
== END 2024-12-21 15:18 | disposition home or self-care (01) | DRG 872 ==
LOC: 4 EAST ACU 11:52
PROVIDERS: Emergency Medicine; Nurse Practitioner Family; ADMITTING PHYSICIAN Hospitalist; ATTENDING PHYSICIAN Internal Medicine; EMERGENCY PHYSICIAN Student in an Organized Health Care Education/Training Program; FAMILY PHYSICIAN Family Medicine Adult Medicine; OTHER PHYSICIAN Internal Medicine Infectious Disease
DX: A41.9 Sepsis, unspecified organism (principal); L03.115 Cellulitis of right lower limb; E11.9 Type 2 diabetes mellitus without complications; E78.5 Hyperlipidemia, unspecified; E66.9 Obesity, unspecified; M19.90 Unspecified osteoarthritis, unspecified site; I25.10 Atherosclerotic heart disease of native coronary artery without angina pectoris; I10 Essential (primary) hypertension; Z87.891 Personal history of nicotine dependence; Z79.82 Long term (current) use of aspirin; Z79.02 Long term (current) use of antithrombotics/antiplatelets; Z79.84 Long term (current) use of oral hypoglycemic drugs; Z88.8 Allergy status to other drugs, medicaments and biological substances; Z68.36 Body mass index [BMI] 36.0-36.9, adult; Z95.5 Presence of coronary angioplasty implant and graft; E87.6 Hypokalemia
CPT/HCPCS: 73590; 73620; 80048; 80053; 82962; 83605; 83735; 85025; 85027; 85652; 86140; 86803; 87040; 87070; 96365; 99285

== ENCOUNTER 2025-02-16 14:34 | Emergency (ER) | payer MEDICARE, OTHER, SELFPAY ==
[2025-02-16 14:36] VITALS: BP 128/75
[2025-02-16 15:01] LABS: Urine Character Slightly Cloudy (Clear)
[2025-02-16 15:01] LABS: Hematocrit 37.8 % (39.0-52.0); Hemoglobin 13.1 g/dL (13.0-18.0); Mean Corp Hgb Conc. 34.7 g/dL (33.0-37.0); Mean Corpuscular Volume 80.8 fL (80.0-94.0); Nucleated Red Blood Cells % 0 % (-); Platelet Count 212 10^3/uL (130-400); Red Cell Dist. Width 13.3 % (11.5-14.5)
[2025-02-16 15:09] LABS: Urine Red Blood Cell >100 /HPF (0-2); Urine Squamous Cell 0-2 /LPF (Few)
[2025-02-16 15:21] LABS: ALT (SGPT) 23 U/L (0-50); AST (SGOT) 25 U/L (17-59); Albumin 5.0 g/dl (3.5-5.0); Alkaline Phosphatase 66 U/L (38-126); Blood Urea Nitrogen 19 mg/dl (9-20); Calcium 10.1 mg/dl (8.4-10.2); Carbon Dioxide 25 mmol/L (22-30); Chloride 108 mmol/L (98-107); Glucose 173 mg/dl (70-99); Potassium 3.8 mmol/L (3.5-5.1); Sodium 142 mmol/L (135-145); Total Protein 8.3 g/dl (6.3-8.2); eGFR > 60.00
--- NOTE | 2025-02-16 16:39 | ED.GENMED ---
History of Present Illness
General
Chief Complaint: Male Genito-Urinary Symptoms
Source: patient
Exam Limitations: none
Time Seen by Provider: 02/16/25 16:24
Nursing documentation reviewed up to this point in time: agreed with
History of Present Illness
History of Present Illness:
Patient to ED with complaint of urinary frequency, hematuria, dysuria. Symptoms started monday. Denies fever/chills. TO ED accompanied by spouse
Past History
Past History
ED Past Medical History: CAD, HTN, Hypercholesterolemia and NIDDM
Review of Systems
Review of Systems
Allergies reviewed?: Yes
All Other Systems: ROS reviewed and negative except as documented in HPI and ROS
Constitutional: Reports no symptoms
EENT: Reports no symptoms
Respiratory: Reports no symptoms
Cardiac: Reports no symptoms
ABD/GI: Reports no symptoms
: Reports dysuria, frequency, difficulty voiding, urgency and bleeding
Musculoskeletal: Reports no symptoms
Skin: Reports no symptoms
Neurological: Reports no symptoms
Psychiatric: Reports no symptoms
Phy Exam
General Physical Exam
General Presentation: moderate distress
General age: appears stated age
General Skin: warm and dry
General Habitus: normal
General Mental: alert
General Hydration: appears well hydrated
Gastrointestinal Exam
Gastrointestinal Exam: normal bowel sounds, non tender, soft, no organomegaly and non distended
Musculoskeletal Exam
Musculoskeletal Exam: full ROM and neuro vasc intact
Skin Exam
Skin Exam: normal color, warm/dry and no rash
Psychiatric Exam
Psychiatric Exam: normal mood/affect
Course
Orders/Labs/Results
Orders:
Orders
02/16/25 14:49
CBC/With Diff [Complete Blood Count/With Diff] Urgent
Comprehensive Metabolic Panel Urgent
02/16/25 14:54
Urinalysis Reflex To Culture Urgent
Date Specimen was Collected: 02/16/25
Time Specimen was Collected: 14:44
Urine Microscopic Reflex Cult Urgent
Urine Culture Urgent
KATTY Source: U
Specimen Description:
Date Specimen was Collected: 02/16/25
Time Specimen was Collected: 14:44
02/16/25 16:37
CT Abd/pel Without Iv Or Oral Urgent
Comment:
Reason For Exam: flank, bladder pain.
Amoxicillin 875 mg/Clav 125 mg [Augmentin 875 mg/125 mg] 1 tablet PO NOW STA
Abnormal Lab Results
02/16/25 02/16/25
14:49 14:54
RBC 4.68 L 10^6/uL
(4.70-6.10)
Hct 37.8 L %
(39.0-52.0)
Chloride 108 H mmol/L
(98-107)
Glucose 173 H mg/dl
(70-99)
Total Protein 8.3 H g/dl
(6.3-8.2)
Ur Occult Blood Reflex 4+ A
(Negative)
Leukocyte Esterase Rfl 2+ A
(Negative)
Urine RBC >100 A /HPF
(0-2)
Urine Bacteria (Reflex) Many A
(Negative)
Urine Albumin (Reflex) 4+ A
(Neg - Trace)
02/16/25 14:49
02/16/25 14:49
Vital Signs
Initial and Last Documented VS:
Initial Vital Signs
Temp Pulse Resp BP Pulse Ox
98.3 F 94 16 128/75 98
02/16/25 14:36 02/16/25 14:36 02/16/25 14:36 02/16/25 14:36 02/16/25 14:36
Last Documented Vital Signs
Temp Pulse Resp BP Pulse Ox
98.3 F 79 16 133/74 97
02/16/25 14:36 02/16/25 16:43 02/16/25 16:43 02/16/25 16:43 02/16/25 16:43
*Radiology
Radiology exam reviewed: radiology read reviewed
*Pulse Oximetry
SaO2: 98
Oxygen Mode of Delivery: Room air
Patient hypoxic: no
*Critical Care Note
Total Time (30-74mins, 75-104mins- exclusive of procedures): Not Applicable
Update Note
Update Note:
Patient to ED wtih complaint of urinary symptoms x 2 days. No fever/chills. WBC, BUN , CReat normal. UA consistent with UTI. CUlture results pending. CT report reviewed with him. NO obstructions. Renal and bladder calculi present. Placed on
Augmentin in ED. WIll discharge home, follow with private urologist at [facility]. Given instructins on s/s to return to ED and he is agreeable tplan
ED Attending Note
-
Portions of this chart may have been created with voice recognition software.� Occasional wrong word or��sound alike� substitutions may have occurred due to the inherent limitations of voice recognition software.
Discharge Plan
Departure
Patient Disposition: Home (Routine Discharge)
Date of Disposition: 02/16/25
Time of Disposition: 17:34
Patient with high blood pressure during this ER visit?: No
Condition: Good
Covid-19: Not Applicable
Discharge Problem:
Acute UTI (urinary tract infection)
Instructions: Urinary tract infections in adults
Prescriptions:
New
amoxicillin-pot clavulanate 875-125 mg tablet
1 tab PO BID Qty: 14 0RF
No Action
metformin 500 mg Tablet
500 mg PO BID
clopidogrel [Plavix] 75 mg Tablet
75 mg PO DAILY
tamsulosin 0.4 mg Capsule
0.4 mg PO HS
indapamide 1.25 mg Tablet
1.25 mg PO DAILY
losartan 100 mg Tablet
100 mg PO NOON
finasteride 5 mg Tablet
5 mg PO HS
aspirin 81 mg Capsule
81 mg PO QPM
amlodipine 10 mg Tablet
10 mg PO DAILY
rosuvastatin 10 mg Tablet
10 mg PO QPM
clotrimazole [Athlete's Foot (clotrimazole)] 1 % Cream
1 applic topical BID Qty: 90 0RF
cephalexin 500 mg capsule
1,000 mg PO Q8H 10 Days Qty: 60 0RF
Referrals:
UNKNOWN - PT DOES,NOT KNOW [Unknown Provider]
Activity Restrictions/Additional Instructions:
Return to the emergency department immediately for any changes in/worsening of your symptoms.
Interventions
Interventions:
*Risk Screen - Suicide Last Done: 02/16/25 14:36
*General Assessment Last Done: 02/16/25 16:37
*Neglect/Abuse Screening Last Done: 02/16/25 14:36
*ED- Fall Risk Assessment Last Done: 02/16/25 16:37
*ED COVID-19 Vaccine History Last Done: 02/16/25 16:37
*Nursing Disposition Last Done: 02/16/25 17:46
ED-Male Genitourinary Assessment Last Done: 02/16/25 16:37
Discharge Date and Time
Discharge Date/Time: 02/16/25 17:47
Print Language: FAROESE
[2025-02-16] MEDS: AUGMENTIN 875 MG/125 MG 1 TABLET PO (16:41)
[2025-02-16 16:43] VITALS: BP 133/74
== END 2025-02-16 17:47 | disposition home or self-care (01) ==
LOC: EMR 14:34
PROVIDERS: Emergency Medicine; EMERGENCY PHYSICIAN Emergency Medicine; FAMILY PHYSICIAN Family Medicine Adult Medicine
DX: N39.0 Urinary tract infection, site not specified (principal); E11.9 Type 2 diabetes mellitus without complications; I25.10 Atherosclerotic heart disease of native coronary artery without angina pectoris; I10 Essential (primary) hypertension; E78.00 Pure hypercholesterolemia, unspecified; N20.0 Calculus of kidney; N21.0 Calculus in bladder; Z79.84 Long term (current) use of oral hypoglycemic drugs; Z79.02 Long term (current) use of antithrombotics/antiplatelets; Z79.82 Long term (current) use of aspirin
CPT/HCPCS: 99284; 74176; 80053; 81003; 81015; 85025; 87086

== ENCOUNTER 2025-02-25 18:45 | Observation (INO) | payer MEDICARE, OTHER, SELFPAY ==
[2025-02-25] VITALS (11 sets, daily range): BP systolic 114–149; BP diastolic 67–88; PULSE 72–73; BMI 34.6; BMI 33.5
[2025-02-25 14:26] LABS: Hematocrit 36.4 % (39.0-52.0); Hemoglobin 12.8 g/dL (13.0-18.0); Mean Corp Hgb Conc. 35.2 g/dL (33.0-37.0); Mean Corpuscular Volume 80.2 fL (80.0-94.0); Nucleated Red Blood Cells % 0 % (-); Platelet Count 185 10^3/uL (130-400); Red Cell Dist. Width 13.1 % (11.5-14.5)
[2025-02-25 14:30] LABS: Urine Character Clear (Clear)
[2025-02-25 14:42] LABS: ALT (SGPT) 24 U/L (0-50); AST (SGOT) 21 U/L (17-59); Albumin 4.7 g/dl (3.5-5.0); Alkaline Phosphatase 56 U/L (38-126); Blood Urea Nitrogen 19 mg/dl (9-20); Calcium 9.8 mg/dl (8.4-10.2); Carbon Dioxide 29 mmol/L (22-30); Chloride 103 mmol/L (98-107); Estimated Creatinine Clearance 98 ml/min; Glucose 145 mg/dl (70-99); Potassium 3.5 mmol/L (3.5-5.1); Sodium 138 mmol/L (135-145); Total Protein 7.5 g/dl (6.3-8.2); Urine Red Blood Cell 16-20 /HPF (0-2); eGFR > 60.00
--- NOTE | 2025-02-25 15:20 | ED.GENMED ---
History of Present Illness
<Sherrie Duke MEDICAL ASSISTANT CARDIOLOGY - Last Filed: 02/25/25 19:26>
General
Chief Complaint: Abdominal Symptoms
Source: patient
Exam Limitations: none
Time Seen by Provider: 02/25/25 13:53
Nursing documentation reviewed up to this point in time: agreed with
History of Present Illness
History of Present Illness:
69 yo male with history of sleep apnea using CPAP, CAD, HTN, HLD, cardiac stent 2024, NIDDM, cholecystectomy, was treated last week for a urinary tract infection with Augmentin 875 twice daily for 7 days, his last dose was 2 days ago.
Presents stating he developed 'vertigo' 3 days ago where the room was spinning, he laid down and the spinning got worse. He tried to stand and room spinning dizziness got worse and he vomited 'a lot,' over a 5 to 10-minute period. He woke up the
next morning (yesterday) with red spots around both eyes, eyelids and a red spot on the outer aspect of the white of his left eye. He denies headache or change in vision. Symptoms eventually improved yesterday and he is feeling a lot better but
still with mild underlying nausea and dizziness but not room spinning dizziness.
Past History
<Sherrie Duke, MEDICAL ASSISTANT CARDIOLOGY - Last Filed: 02/25/25 19:26>
Past History
ED Past Medical History: CAD, HTN, Hypercholesterolemia and NIDDM
Review of Systems
<Sherrie Duke, MEDICAL ASSISTANT CARDIOLOGY - Last Filed: 02/25/25 19:26>
Review of Systems
Allergies reviewed?: Yes
All Other Systems: ROS reviewed and negative except as documented in HPI and ROS
Constitutional: Denies fever
EENT: Denies sore throat or runny nose
Respiratory: Denies trouble breathing
Cardiac: Denies chest pain
ABD/GI: Reports nausea; Denies abdominal pain or vomiting (other than once two days ago when symptoms started.)
Skin: Reports no symptoms
Neurological: Reports dizzy; Denies headache, weakness or numbness
Phy Exam
<Sherrie Duke, MEDICAL ASSISTANT CARDIOLOGY - Last Filed: 02/25/25 19:26>
Physical Exam
Physical Exam:
GENERAL: No acute distress. A&Ox3.
CONSTITUTIONAL: Afebrile.
EYES: clear, left lateral conjunctival with a subconjunctival hemorrhage. Both periorbital areas have tiny petechiae mostly on the left upper eyelid. EOMs intact.
ENMT: moist mucus membranes, Pharynx nl
RESPIRATORY: Regular respirations, nonlabored, lungs clear.
CARDIOVASCULAR: Regular rate and rhythm, no murmurs, no rubs.
GI: Soft, nontender, normal BS
MUSCULOSKELETAL: Moves with ease. Well perfused.
SKIN: Warm, dry, pink
PSYCH: Normal mood and affect. Well kept, interactive and appropriate
NEUROLOGIC: Awake, alert and oriented. No focal neurological deficits, cranial nerves II through XII intact. [id number] intact. Speech clear. Ambulates with steady gait.
Course
<Sherrie Duke, MEDICAL ASSISTANT CARDIOLOGY - Last Filed: 02/25/25 19:26>
Orders/Labs/Results
Orders:
Orders
02/25/25 Breakfast
1800 calorie (15 carb) Diabetic
02/25/25 14:04
CT Head W/o Iv Contrast Urgent
Comment:
Reason For Exam: dizziness
02/25/25 14:16
Complete Blood Count/With Diff Urgent
Comprehensive Metabolic Panel Urgent
Urinalysis Reflex To Culture Urgent
Date Specimen was Collected: 02/25/25
Time Specimen was Collected: 14:14
Urine Microscopic Reflex Cult Urgent
02/25/25 16:19
Physical Therapy Consult [Pt Eval And Treat] Urgent
Treatment: Vestibular evaluation
Activity Level: Ambulate
02/25/25 18:35
Admit/Transfer Patient As Directed
Co-Sign Provider:
Level of Care: Observation services
Assign to:: Telemetry
Physician / Group: vinicio
Diagnosis: BPPV/TIA
Reason for Telemetry: CVA/TIA
Date to Stop Telemetry: 02/28/25
Time to Stop Telemetry: 11:00
PRN Pain Medication Management As Directed
May give lesser potent ordered pain med per pt: Yes
preference::
Protocol:: Medication orders for pain may be administered in a
manner that supports deferring to patient preference
when the pt is:
- Requesting an ordered lesser potent pain medication.
Least to most potent pain medications are defined
as: acetaminophen < NSAID < tramadol < opioids
(morphine, oxycodone, hydromorphone).
- Requesting a lesser dose of the same medication IF
ORDERED.
- Requesting a less intrusive route of administration
if both routes are prescribed by the provider (PO <
IV).
02/25/25 18:36
Code Status As Directed
Resuscitation Status: Full Code
02/25/25 20:30
Acetaminophen [Tylenol] 650 mg PO Q4HPRN PRN
Bisacodyl [Dulcolax] 10 mg RECTAL [id number] PRN
Dextrose 50%-Water [Dextrose 50% Syringe] 12.5 grams IV [id number] PRN
Docusate W/Senna [Senokot-S] 1 tablet PO BIDPRN PRN
Glucagon [GlucaGen] 1 mg IM PRN PRN
Polyethylene Glycol Powder [Miralax] 17 grams PO DAILYPRN PRN
02/25/25 20:30
MRI Brain [MR Brain Without Contrast] Routine
Comment:
Reason For Exam: dizzy
Recent pill cam endoscopy?: No
Activity As Directed
Activity Level: As Tolerated
Bedside Glucose Monitoring As Directed
Frequency: AC&HS
Additional Instructions:: Change to q6h if pt on TPN, tube feeding or not eating
Orthostatic Vital Signs As Directed
Orthostatic VS Frequency: Now
Pneumatic Compression Sleeves As Directed
Type: Knee high
Vital Signs As Directed
Frequency: Per unit guidelines
DX Deep Vein Thrombosis Video Routine
02/25/25 22:00
Finasteride [Proscar] 5 mg PO HS
Tamsulosin [Flomax] 0.4 mg PO HS
02/26/25 06:00
Cardiovascular Evaluation IN AM
Glycohemoglobin (HgbA1c) IN AM
02/26/25 07:30
Insulin Aspart Corrective Low [Novolog Flexpen-Low Resistance] See Protocol SC AC
02/26/25 08:00
Amlodipine [Norvasc] 10 mg PO DAILY
indapamide 1.25 mg PO DAILY
02/26/25 12:00
Losartan [Cozaar] 100 mg PO NOON
02/26/25 18:00
Rosuvastatin Calcium [Crestor] 10 mg PO QPM
02/28/25 11:00
DC Protocol for Telemetry ONCE
Abnormal Lab Results
02/25/25
14:16
RBC 4.54 L 10^6/uL
(4.70-6.10)
Hgb 12.8 L g/dL
(13.0-18.0)
Hct 36.4 L %
(39.0-52.0)
Glucose 145 H mg/dl
(70-99)
Ur Occult Blood Reflex 2+ A
(Negative)
Urine RBC 16-20 A /HPF
(0-2)
Urine Albumin (Reflex) 2+ A
(Neg - Trace)
02/25/25 14:16
02/25/25 14:16
Vital Signs
Initial and Last Documented VS:
Initial Vital Signs
Temp Pulse Resp BP Pulse Ox
36.7 C 85 16 141/77 98
02/25/25 13:37 02/25/25 13:37 02/25/25 13:37 02/25/25 13:37 02/25/25 13:37
Last Documented Vital Signs
Temp Pulse Resp BP Pulse Ox
36.7 C 72 11 126/70 97
02/25/25 13:37 02/25/25 20:15 02/25/25 20:15 02/25/25 20:04 02/25/25 20:15
<Anish Simmons MD - Last Filed: 02/25/25 20:33>
Orders/Labs/Results
Orders:
Orders
02/25/25 Breakfast
1800 calorie (15 carb) Diabetic
02/25/25 14:04
CT Head W/o Iv Contrast Urgent
Comment:
Reason For Exam: dizziness
02/25/25 14:16
Complete Blood Count/With Diff Urgent
Comprehensive Metabolic Panel Urgent
Urinalysis Reflex To Culture Urgent
Date Specimen was Collected: 02/25/25
Time Specimen was Collected: 14:14
Urine Microscopic Reflex Cult Urgent
02/25/25 16:19
Physical Therapy Consult [Pt Eval And Treat] Urgent
Treatment: Vestibular evaluation
Activity Level: Ambulate
02/25/25 18:35
Admit/Transfer Patient As Directed
Co-Sign Provider:
Level of Care: Observation services
Assign to:: Telemetry
Physician / Group: vinicio
Diagnosis: BPPV/TIA
Reason for Telemetry: CVA/TIA
Date to Stop Telemetry: 02/28/25
Time to Stop Telemetry: 11:00
PRN Pain Medication Management As Directed
May give lesser potent ordered pain med per pt: Yes
preference::
Protocol:: Medication orders for pain may be administered in a
manner that supports deferring to patient preference
when the pt is:
- Requesting an ordered lesser potent pain medication.
Least to most potent pain medications are defined
as: acetaminophen < NSAID < tramadol < opioids
(morphine, oxycodone, hydromorphone).
- Requesting a lesser dose of the same medication IF
ORDERED.
- Requesting a less intrusive route of administration
if both routes are prescribed by the provider (PO <
IV).
02/25/25 18:36
Code Status As Directed
Resuscitation Status: Full Code
02/25/25 20:30
Acetaminophen [Tylenol] 650 mg PO Q4HPRN PRN
Bisacodyl [Dulcolax] 10 mg RECTAL [id number] PRN
Dextrose 50%-Water [Dextrose 50% Syringe] 12.5 grams IV [id number] PRN
Docusate W/Senna [Senokot-S] 1 tablet PO BIDPRN PRN
Glucagon [GlucaGen] 1 mg IM PRN PRN
Polyethylene Glycol Powder [Miralax] 17 grams PO DAILYPRN PRN
02/25/25 20:30
MRI Brain [MR Brain Without Contrast] Routine
Comment:
Reason For Exam: dizzy
Recent pill cam endoscopy?: No
Activity As Directed
Activity Level: As Tolerated
Bedside Glucose Monitoring As Directed
Frequency: AC&HS
Additional Instructions:: Change to q6h if pt on TPN, tube feeding or not eating
Orthostatic Vital Signs As Directed
Orthostatic VS Frequency: Now
Pneumatic Compression Sleeves As Directed
Type: Knee high
Vital Signs As Directed
Frequency: Per unit guidelines
DX Deep Vein Thrombosis Video Routine
02/25/25 22:00
Finasteride [Proscar] 5 mg PO HS
Tamsulosin [Flomax] 0.4 mg PO HS
02/26/25 06:00
Cardiovascular Evaluation IN AM
Glycohemoglobin (HgbA1c) IN AM
02/26/25 07:30
Insulin Aspart Corrective Low [Novolog Flexpen-Low Resistance] See Protocol SC AC
02/26/25 08:00
Amlodipine [Norvasc] 10 mg PO DAILY
indapamide 1.25 mg PO DAILY
02/26/25 12:00
Losartan [Cozaar] 100 mg PO NOON
02/26/25 18:00
Rosuvastatin Calcium [Crestor] 10 mg PO QPM
02/28/25 11:00
DC Protocol for Telemetry ONCE
Abnormal Lab Results
02/25/25
14:16
RBC 4.54 L 10^6/uL
(4.70-6.10)
Hgb 12.8 L g/dL
(13.0-18.0)
Hct 36.4 L %
(39.0-52.0)
Glucose 145 H mg/dl
(70-99)
Ur Occult Blood Reflex 2+ A
(Negative)
Urine RBC 16-20 A /HPF
(0-2)
Urine Albumin (Reflex) 2+ A
(Neg - Trace)
02/25/25 14:16
02/25/25 14:16
Vital Signs
Initial and Last Documented VS:
Initial Vital Signs
Temp Pulse Resp BP Pulse Ox
36.7 C 85 16 141/77 98
02/25/25 13:37 02/25/25 13:37 02/25/25 13:37 02/25/25 13:37 02/25/25 13:37
Last Documented Vital Signs
Temp Pulse Resp BP Pulse Ox
36.7 C 72 11 126/70 97
02/25/25 13:37 02/25/25 20:15 02/25/25 20:15 02/25/25 20:04 02/25/25 20:15
<Sherrie Duke, MEDICAL ASSISTANT CARDIOLOGY - Last Filed: 02/25/25 19:26>
MDM/Problems Addressed
Differential Diagnosis Includes:
BPPV, labyrinthitis, vestibular neuritis, CVA
MDM/Problems Addressed:
69 yo male with history of sleep apnea using CPAP, CAD, HTN, HLD, cardiac stent 2024, NIDDM, cholecystectomy, was treated last week for a urinary tract infection with Augmentin 875 twice daily for 7 days, his last dose was 2 days ago.
Presents stating he developed 'vertigo' 3 days ago where the room was spinning, he laid down and the spinning got worse. He tried to stand and room spinning dizziness got worse and he vomited 'a lot,' over a 5 to 10-minute period. He woke up the
next morning (yesterday) with red spots around both eyes, eyelids and a red spot on the outer aspect of the white of his left eye. He denies headache or change in vision. Symptoms eventually improved yesterday and he is feeling a lot better but
still with mild underlying nausea and dizziness but not room spinning dizziness.
Petechiae around eyes and left eye subconjunctival hemorrhage is from severe episode vomiting. Pt reassured patient's original symptoms are consistent with vertigo. Is reassuring that they are much improved and his neuro exam is normal.
Plan: Obtain CT scan, if negative will consult PT for vestibular evaluation. Basic lab work
UA since patient had treatment for recent urinary tract infection.
CBC normal
CMP normal
UA without infection
3:30 PM: Patient to CAT scan
4:20 PM: Head CT negative, PT consulted for vestibular evaluation
P/T in: No nystagmus, he did the Aleks-Hallpike which was negative. Patient out of bed and ambulating with steady gait. He denies significant dizziness but says he still has 'just a little bit.'
5:30 p.m.
Case discussed with Dr. Simmons who examined patient, needs MRI.
Agrees with plan to admit: Hospitalist notified of admission.
<Sherrie Duke NP - Last Filed: 02/25/25 19:26>
*Pulse Oximetry
SaO2: 96
Oxygen Mode of Delivery: Room air
Patient hypoxic: not evaluated
*Critical Care Note
Total Time (30-74mins, 75-104mins- exclusive of procedures): Not Applicable
ED Attending Note
<Sherrie Duke MEDICAL ASSISTANT CARDIOLOGY - Last Filed: 02/25/25 19:26>
-
Portions of this chart may have been created with voice recognition software.� Occasional wrong word or��sound alike� substitutions may have occurred due to the inherent limitations of voice recognition software.
<Anish Simmons MD - Last Filed: 02/25/25 20:33>
ED Attending Note
Patient seen and examined by attending physician: Yes
ED Attending Note:
I have seen and evaluated the patient with a [id number] encounter. I have spoken to the advance practicer provider and involved in the medical history, the physical exam, medical decision making.
Evaluation and management service: agree unless noted differently below.
Results interpretation: agree unless noted differently below.
Focused HPI: 69-year-old male with history as documented presents for evaluation of dizziness. He reports acute onset of symptoms Monday evening�initially he had severe room spinning sensation associated with profuse nausea and vomiting. Symptoms
improved to the point that he was able to sleep Monday night but he has had constant mild dizziness since which prompted ER visit. He did note subconjunctival hemorrhage after vomiting as well as some redness around his eyes. He denies any change
in his vision or speech. Denies any focal weakness or numbness. He denies any headache or neck pain. Denies recent URI symptoms. He says he has never had similar symptoms in the past.
Physical exam: Awake and alert not in distress. He does have minor subconjunctival hemorrhage in the left eye and some minor periorbital petechiae. His pupils are equal round reactive to light bilaterally. He has no reproducible nystagmus,
negative Aleks-Hallpike. Cranial nerves are intact, no limb ataxia on finger-nose. Motor and sensory intact in all extremities
Medical Decision Makin-year-old male presents for evaluation of dizziness as described above. Symptoms have improved but not completely resolved. Vitals and exam as above. No reproducible nystagmus�he has risk factors for stroke and given
persistence of symptoms I think that this diagnosis needs to be ruled out. His labs were unremarkable, CT head negative. Admit for continued workup.
Discharge Plan
Departure
Patient Disposition: Admit
Date of Disposition: 02/25/25
Time of Disposition: 18:08
Admit to: Med/Surg
Presentation/result/management discussed w/ accepting MD/DO: Hospitalist
Condition: Good
Discharge Problem:
Subconjunctival hemorrhage of left eye, Petechiae, Dizziness
Interventions
Interventions:
*Risk Screen - Suicide Last Done: 02/25/25 13:37
*General Assessment Last Done: 02/25/25 14:01
*Neglect/Abuse Screening Last Done: 02/25/25 13:37
*ED- Fall Risk Assessment Last Done: 02/25/25 14:08
*ED COVID-19 Vaccine History Last Done: 02/25/25 14:08
*Nursing Disposition Last Done: 02/25/25 20:24
IG-Kawjtm-Grjgnajpbi Assessment Last Done: 02/25/25 14:18
Discharge Date and Time
Discharge Date/Time: 02/25/25 20:24
--- NOTE | 2025-02-25 18:10 | HPS.HSE ---
Addendum entered and electronically signed by Michel Manzanares MD 02/25/25 19:38:
This is an addendum to H&P written by Caryl Lucia on 02/25/2025. �Patient seen and examined independently with DIRECTOR TALENT.
69-year-old male past medical history of sleep apnea on CPAP, CAD, hypertension, diabetes, hyperlipidemia, obesity, BPH, presenting with intermittent vertigo for past 2 days with an episode of vomiting. �He came in dizzy double bloodshot eyes after
vomiting.
Had UTI last week treated with antibiotic.
On examination he has red in the corner of his left eye.
Aleks-Hallpike maneuver was negative.
Vital signs unremarkable.
Labs unremarkable. �Urinalysis unremarkable. �CT head shows no acute abnormality
Patient with benign positional vertigo that has since resolved associated with vomiting now resolved. �Also with some conjunctival hemorrhage likely from vomiting. �Check orthostatic vital signs. �Check MRI brain to rule out CVA.
Original Note:
Family Physician
-
Family Physician: Sg Bradshaw
Chief Complaint
-
vertigo
History of Present Illness
69 yo male with history of sleep apnea using CPAP, CAD, HTN, HLD, cardiac stent 2024, NIDDM, cholecystectomy, was treated last week for a urinary tract infection with Augmentin 875 twice daily for 7 days, his last dose was on Monday. Monday evening
he developed 'vertigo' where the room was spinning, he laid down and the spinning got worse. He tried to stand and room spinning dizziness got worse and he vomited 'a lot,' over a 5 to 10-minute period. He woke up yesterday morning with red spots
around both eyes and blood shot in his eyes. he is not dizzy anymore but got worried due to his blood shot eyes. He denies headache or change in vision. denied blurry vision, numbness, tingling. denied chest pain,sob. denied abdominal pain,n,v,d.
denied dysuria or hematuria.
head CT with no acute findings. admitting for further management.
Medical History
Past Medical History
Past Medical History: Reports Other
Additional Past Medical History:
Hypertension
DM-II
Dyslipidemia
DJD
Obesity
Past Surgical History: Reports Other
Additional Past Surgical History:
PTCA with LAD Stent (08/22/24)
Cholecystectomy
Social History
Tobacco: Former Smoker
Alcohol: None
Drug: None
Personal:
Living: With Family
Family History
Family History: Not pertinent
Allergies / Home Medications
Allergies reflects when Allergies were last updated in [facility].
Home Medications with original date entered in [facility]
Allergy/Medication List:
Allergies
Allergy/AdvReac Type Severity Reaction Status Date / Time
steroids Allergy Swelling Uncoded 02/25/25 13:39
Home Medications
amlodipine 10 mg tablet 10 mg PO DAILY Blood Pressure 08/27/24
finasteride 5 mg tablet 5 mg PO HS Urinary Issue 08/27/24
indapamide 1.25 mg tablet 1.25 mg PO DAILY 08/27/24
losartan 100 mg tablet 100 mg PO NOON Blood Pressure 08/27/24
metformin 500 mg tablet 500 mg PO BID Diabetes 08/27/24
rosuvastatin 10 mg tablet 10 mg PO QPM High Cholesterol 08/27/24
tamsulosin 0.4 mg capsule 0.4 mg PO HS Urinary Issue 08/27/24
Review of Systems
-
Constitutional: Reports No Symptoms
EENT: Reports No Symptoms
Respiratory: Reports No Symptoms
Cardiac: Reports No Symptoms
Abdomen/GI: Reports No Symptoms
: Reports No Symptoms
Musculoskeletal: Reports No Symptoms
Skin: Reports No Symptoms
Neurological: Reports Dizzy
Endocrine: Reports No Symptoms
Hematologic/Lymphatic: Reports No Symptoms
Psych: Reports No Symptoms
Physical Exam
Vital Signs
Vital Signs
Temp Pulse Resp BP Pulse Ox
98.1 F 73 16 144/76 97
02/25/25 13:37 02/25/25 14:09 02/25/25 14:09 02/25/25 16:45 02/25/25 16:34
Physical Exam
General: Well Developed, Well Nourished and No Apparent Distress
HEENT: NormoCephalic, Moist mucous membranes and Atraumatic
Respiratory: Clear
Cardiac: S1/S2 and Regular Rhythm; No Murmur or Rub
GI: Soft, Non Tender, Non Distended and Normal Bowel Sounds; No Organomegaly
Rectal: Deferred by Provider
Musculoskeletal: No Clubbing, No Cyanosis and No Edema
Skin: No Rash
Neuro: AO x 3 and Nonfocal/grossly intact
Psych: Calm
Laboratory Results
-
02/25/25 14:16
02/25/25 14:16
Laboratory Results
Total Bilirubin 0.6 mg/dl (0.2-1.3) 02/25/25 14:16
AST 21 U/L (17-59) 02/25/25 14:16
ALT 24 U/L (0-50) 02/25/25 14:16
Alkaline Phosphatase 56 U/L (38-126) 02/25/25 14:16
Data Reviewed
-
CT Scan: Report Reviewed by me
Lab Data: Labs Reviewed by me
Impression/Plan
-
#dizziness likely BPPV
#conjunctival hemorrhage likely from vomiting
-Ct head negative
-PT/OT consulted
- CT head with no evidence of acute intracranial abnormality
-obtain MRI
-obtain orthostatics.
##Hypertension
- continue indapamide and losartan
#DM-II
-hold metformin
-sliding scale
-CHO diet
#ASCVD
#Dyslipidemia
-statin
#Obesity
- affects all aspects of care
- encourage balanced diet and exercise to promote weight loss
#BPH
-finasteride, Flomax
Code status: full code
DVT prophylaxis: scd
--- NOTE | 2025-02-25 20:50 | PTCARENOTE ---
Received patient from ED via stretcher. Patient ambulated from stretcher to bed with minimal assistance. Denies pain, dizziness, and nausea. Oriented patient to room and placed call ridley within reach.
[2025-02-25 21:50] LABS: Glucose - Point of Care 181 mg/dl (70-99)
[2025-02-25] MEDS: FLOMAX 0.4 MG PO (21:50)
[2025-02-25] MEDS: GLUCOPHAGE 500 MG PO (21:50)
[2025-02-25] MEDS: ASPIR LOW (ENTERIC COATED) 81 MG PO (21:50)
[2025-02-25] MEDS: PROSCAR 5 MG PO (21:50)
[2025-02-26] VITALS (8 sets, daily range): BP systolic 111–154; BP diastolic 68–87; PULSE 71–83; O2SAT 99
[2025-02-26 07:26] LABS: Glucose - Point of Care 128 mg/dl (70-99)
[2025-02-26] MEDS: NOVOLOG FLEXPEN-LOW RESISTANCE SC ×2 (08:13→12:13)
[2025-02-26] MEDS: PLAVIX 75 MG PO (08:15)
[2025-02-26] MEDS: GLUCOPHAGE 500 MG PO (08:15)
[2025-02-26] MEDS: NORVASC 10 MG PO (08:15)
[2025-02-26 08:21] LABS: HDL Cholesterol 34 mg/dl; LDL Cholesterol, Calculated 42 mg/dl; Very Low Density Lipoprotein 30 mg/dl (0-30)
[2025-02-26 09:11] LABS: Glycohemoglobin (HgbA1c) 6.4 % (4.0-5.6)
--- NOTE | 2025-02-26 09:58 | W.PN.HOSP.TC ---
Today's Communication/Plan
-
MRI brain. IVF
Assessment / Plan
Assessment / Plan
Physical exam:
General: Acutely ill
HEENT: Normocephalic, Atraumatic and Moist Mucous Membranes
Respiratory: Clear to Auscultation; Negative Wheezes, Rales or Rhonchi
Cardiac: Regular Rhythm and S1/S2
GI: Soft, Nontender and Nondistended
Musculoskeletal: No Clubbing, No Cyanosis and No Edema
Neuro: Awake, Alert and Oriented, no gross neuro deficits; +horizontal nystagmus
Psych: Anxious
A/P:
#dizziness likely BPPV
#conjunctival hemorrhage likely from vomiting
-Ct head negative
-PT/OT consulted
- CT head with no evidence of acute intracranial abnormality
-obtain MRI brain
# Orthostatic
Aggressive IV fluid hydration
Monitor orthostatic closely
# Food poisoning/suspect viral gastroenteritis
Supportive care
if worsening diarrhea will send stools to labs
##Hypertension
- continue norvasc, pending indapamide, and hold losartan
#DM-II
-hold metformin today
-sliding scale
-CHO diet
#ASCVD
#Dyslipidemia
-statin
#Obesity
- affects all aspects of care
- encourage balanced diet and exercise to promote weight loss
#BPH
-finasteride, Flomax
Code status: full code
DVT prophylaxis: scd
Time spent 35 min
Anticipated Discharge: Within 24 hours
Subjective/Interval History
-
Date of Service: February 26, 2025
Patient very orthostatic after physical therapy today. He reports some loose stools. Does not feel well overall. Afebrile
Objective Data
-
Vital Signs:
Vital Signs
Temp Pulse Resp BP Pulse Ox
97.8 F 63 18 147/84 98
08/27/25 07:35 02/26/25 07:35 02/26/25 07:35 02/26/25 07:35 02/26/25 07:35
I&O
02/25/25 02/26/25 02/27/25
06:59 06:59 06:59
Intake Total 480 / 480
Balance 480 / 480
--- NOTE | 2025-02-26 10:15 | PTCARENOTE ---
Patient became diaphoretic and lightheaded after working with PT. BP with significantly drop SBP 150s to 110s. Instructed to only get out of bed with assistance. Dr Meredith made aware, orders placed.
[2025-02-26] MEDS: NSS 1000 IV (11:22)
[2025-02-26 11:50] LABS: Glucose - Point of Care 122 mg/dl (70-99)
[2025-02-26 12:01] LABS: Hematocrit 34.5 % (39.0-52.0); Hemoglobin 12.2 g/dL (13.0-18.0); Mean Corp Hgb Conc. 35.4 g/dL (33.0-37.0); Mean Corpuscular Volume 80.6 fL (80.0-94.0); Platelet Count 172 10^3/uL (130-400); Red Cell Dist. Width 12.9 % (11.5-14.5)
[2025-02-26 12:46] LABS: ALT (SGPT) 21 U/L (0-50); AST (SGOT) 19 U/L (17-59); Albumin 4.2 g/dl (3.5-5.0); Alkaline Phosphatase 54 U/L (38-126); Blood Urea Nitrogen 17 mg/dl (9-20); Calcium 9.8 mg/dl (8.4-10.2); Carbon Dioxide 27 mmol/L (22-30); Chloride 102 mmol/L (98-107); Estimated Creatinine Clearance 96 ml/min; Glucose 118 mg/dl (70-99); Magnesium 1.8 mg/dl (1.6-2.3); Potassium 3.5 mmol/L (3.5-5.1); Sodium 137 mmol/L (135-145); Total Protein 7.2 g/dl (6.3-8.2); eGFR > 60.00
[2025-02-26 14:49] LABS: Urine Character Clear (Clear)
[2025-02-26 15:07] LABS: Urine Red Blood Cell 30-40 /HPF (0-2); Urine Urothelial Cell 0-2 /LPF (FEW)
[2025-02-26 15:08] LABS: Urine White Cell 0-2 /HPF (0-5)
[2025-02-26 16:42] LABS: Glucose - Point of Care 158 mg/dl (70-99)
[2025-02-26] MEDS: NOVOLOG FLEXPEN-LOW RESISTANCE 1 UNITS SC (17:30)
[2025-02-26] MEDS: CRESTOR 10 MG PO (17:30)
[2025-02-26] MEDS: NSS IV (17:48)
[2025-02-26] MEDS: ASPIR LOW (ENTERIC COATED) 81 MG PO (20:25)
[2025-02-26] MEDS: PROSCAR 5 MG PO (20:26)
[2025-02-26 21:13] LABS: Glucose - Point of Care 158 mg/dl (70-99)
[2025-02-27 00:24] VITALS: BP 133/73; BP 133/83; BP 136/81; PULSE 65; PULSE 73; PULSE 74
[2025-02-27 03:44] VITALS: BP 124/73
[2025-02-27 08:08] VITALS: BP 133/69
[2025-02-27 08:40] LABS: Hematocrit 35.5 % (39.0-52.0); Hemoglobin 12.6 g/dL (13.0-18.0); Mean Corp Hgb Conc. 35.5 g/dL (33.0-37.0); Mean Corpuscular Volume 81.4 fL (80.0-94.0); Platelet Count 178 10^3/uL (130-400); Red Cell Dist. Width 13.0 % (11.5-14.5)
[2025-02-27] MEDS: NORVASC 10 MG PO (09:07)
[2025-02-27] MEDS: PLAVIX 75 MG PO (09:07)
[2025-02-27 09:08] LABS: Blood Urea Nitrogen 15 mg/dl (9-20); Calcium 9.7 mg/dl (8.4-10.2); Carbon Dioxide 25 mmol/L (22-30); Chloride 106 mmol/L (98-107); Estimated Creatinine Clearance 110 ml/min; Glucose 119 mg/dl (70-99); Potassium 4.0 mmol/L (3.5-5.1); Sodium 139 mmol/L (135-145); eGFR > 60.00
[2025-02-27] MEDS: NOVOLOG FLEXPEN-LOW RESISTANCE SC ×2 (09:08→12:50)
[2025-02-27 09:10] LABS: Glucose - Point of Care 131 mg/dl (70-99)
--- NOTE | 2025-02-27 10:39 | CON.MD ---
Consultation - Medical
-
69 yo c KRISTIAN, HTN, DM, CAD presented c vertigo when he laid down assoc c N/V. symptoms temporary has have resolved, but presented due to erythema of eye and concern over more serious issue. Head CT negative, MRI showed questionable abnormality R
cochlear nerve. Pt denies hearing loss.
No longer with vertigo, but had some lightheadedness and orthostatis with activity. Receiving IVF
Follow up MRI showed no enhancing mass R IAC.
Was recently on antibx for UTI , states he has a tooth that may be infected
PE - cerumen bilat , but can visualize nl TMs
no nystagmus, cerebellar tests normal
A/P Self limited vertigo with nausea
May have been BPPV, labyrinthitis seems less likely given short duration
Small amt fluid seen in mastoid, but no evidence of otitis or mastoiditis
No acute treatment
Would have pt follow up in office for audiogram, cerumen removal, and balance evaluation if needed
[2025-02-27 11:53] VITALS: BP 149/81
[2025-02-27] MEDS: AUGMENTIN 875 MG/125 MG 1 TABLET PO (11:54)
[2025-02-27] MEDS: FLORASTOR 250 MG PO (11:54)
--- NOTE | 2025-02-27 12:00 | W.PN.HOSP.TC ---
Today's Communication/Plan
-
Discharge planning today
Assessment / Plan
Assessment / Plan
Physical exam:
General: No acute distress
HEENT: Normocephalic, Atraumatic and Moist Mucous Membranes
Respiratory: Clear to Auscultation; Negative Wheezes, Rales or Rhonchi
Cardiac: Regular Rhythm and S1/S2
GI: Soft, Nontender and Nondistended
Musculoskeletal: No Clubbing, No Cyanosis and No Edema
Neuro: Awake, Alert and Oriented, no gross neuro deficits; no nystagmus today
Psych: Anxious
A/P:
#dizziness likely BPPV
#conjunctival hemorrhage likely from vomiting.
-Ct head negative
-PT/OT consulted
- CT head with no evidence of acute intracranial abnormality
-obtained MRI brain and no stroke but it was abnormal and radiology recommended repeat with contrast. We had MRI with contrast today and it shows nonspecific inflammation right vestibular cochlear nerve. I had ENT evaluated him and they will
follow him up as outpatient.
#Tooth infection/possible possible neuronitis
Short course of antibiotics for 5 days plus probiotics
Dentist and ENT follow-up as OP
#recent UTI
Finished course of 3
# Orthostatic
Aggressive IV fluid hydration
- Orthostatic improved after IV fluid
# Food poisoning/suspect viral gastroenteritis
Supportive care
if worsening diarrhea will send stools to labs
##Hypertension
- continue norvasc, pending indapamide, and hold losartan
#DM-II
-hold metformin today
-sliding scale
-CHO diet
#ASCVD
#Dyslipidemia
-statin
#Obesity
- affects all aspects of care
- encourage balanced diet and exercise to promote weight loss
#BPH
-finasteride, Flomax
Code status: full code
DVT prophylaxis: scd
Anticipated Discharge: Today
Subjective/Interval History
-
Date of Service: February 27, 2025
Patient feels well today. He does have mild tooth pain that has been going on for a while and wants to see a dentist. Afebrile
Objective Data
-
Labs:
Laboratory Results
02/27/25
07:23
WBC 7.4
Hgb 12.6 L
Hct 35.5 L
Plt Count 178
Sodium 139
Potassium 4.0
Chloride 106
Carbon Dioxide 25
BUN 15
Creatinine 0.7
Glucose 119 H
Calcium 9.7
Vital Signs:
Vital Signs
Temp Pulse Resp BP Pulse Ox
97.7 F 74 18 149/81 98
02/27/25 11:53 02/27/25 11:53 02/27/25 11:53 02/27/25 11:53 02/27/25 11:53
I&O
02/26/25 02/27/25 02/28/25
06:59 06:59 06:59
Intake Total 480 / 480 840 / 840
Output Total 200 / 200
Balance 480 / 480 840 / 840 -200 / -200
--- NOTE | 2025-02-27 12:04 | W.DCSUMMARY ---
Discharge Summary
Discharge Data
Date of Admission: 02/25/25
Date of Discharge: 02/27/25
-
Pending Results: No
Hospital Course
Patient is 69 years old male with history of hypertension, diabetes mellitus, KRISTIAN, CAD came into the hospital with vertigo associated with nausea and vomiting. Patient was noted to be orthostatic. He received IV fluids and his orthostasis
improved. He had recently received antibiotics for UTI. Part of his workup revealed MRI that had an abnormal findings on the right cochlear nerve therefore MRI and with gadolinium was reordered and it did show right vestibular cochlear nerve
thickening and enhancement. He also has a tooth infection and he is to see a dentist as outpatient. Patient symptoms improved. ENT evaluated the patient and will continue to follow-up as outpatient. Otherwise, patient hemodynamically stable and
symptomatically improved. He participated with physical therapy. He will be discharged in stable condition today.
Discharge Plan
-
Patient Disposition: Home (Routine Discharge)
Discharge Diagnosis/Procedures: Vertigo. Right vestibulocochlear nerve inflammation. Orthostasis. Tooth infection
Diet: Low Cholesterol
Activity: As tolerated
Blood Work: Please PCP to order CBC, BMP within 1 week
Referrals:
Sg Bradshaw DO [Family Provider, Family Practice] - in less than 1 week
Kamaljit Gonzalez MD [Active, Otology] - in two to four weeks
Prescriptions:
New
amoxicillin-pot clavulanate 875-125 mg Tablet
1 tab PO Q12 5 Days Qty: 10 0RF
Saccharomyces boulardii 250 mg Capsule
250 mg PO BID 10 Days Qty: 20 0RF
Continued
metformin 500 mg Tablet
500 mg PO BID
tamsulosin 0.4 mg Capsule
0.4 mg PO HS
indapamide 1.25 mg Tablet
1.25 mg PO DAILY
losartan 100 mg Tablet
100 mg PO NOON
finasteride 5 mg Tablet
5 mg PO HS
amlodipine 10 mg Tablet
10 mg PO DAILY
rosuvastatin 10 mg Tablet
10 mg PO QPM
clopidogrel [Plavix] 75 mg Tablet
75 mg PO DAILY
aspirin 81 mg Capsule
81 mg PO HS
Discharge Orders:
Discharge Patient (As Directed); Ordered 02/27/25
Ordered By: Nuno Meredith
Discharge Date and Time
Discharge Date/Time: 02/27/25 14:00
Print Language: LAO
[2025-02-27 12:30] LABS: Glucose - Point of Care 124 mg/dl (70-99)
--- NOTE | 2025-02-27 14:18 | CM ---
Patient seen at bedside on . Patient stated that he was not sure of the OBS/BEST form, CM provided form and reviewed information. Patient stated that he did not want to sign form. Copy of form documented and placed on chart. Patient states
that he lives with his and son in a 2 story apartment. Patient states that his PCP is Dr. Berrios and he uses the [facility] in [place]. Patient denied any DME at home and stated that his son was coming to pick him up shortly. CM will continue to follow
for discharge planning needs.
Plan; home with no needs anticipated at this time
== END 2025-02-27 14:00 | disposition home or self-care (01) ==
LOC: 4 EAST ACU 18:45
PROVIDERS: Registered Nurse; ADMITTING PHYSICIAN Hospitalist; ATTENDING PHYSICIAN Hospitalist; EMERGENCY PHYSICIAN Emergency Medicine; FAMILY PHYSICIAN Family Medicine Adult Medicine; OTHER PHYSICIAN Otolaryngology
DX: R42 Dizziness and giddiness (principal); I25.10 Atherosclerotic heart disease of native coronary artery without angina pectoris; I10 Essential (primary) hypertension; A05.9 Bacterial foodborne intoxication, unspecified; N40.0 Benign prostatic hyperplasia without lower urinary tract symptoms; E66.9 Obesity, unspecified; E78.00 Pure hypercholesterolemia, unspecified; E11.9 Type 2 diabetes mellitus without complications; K04.7 Periapical abscess without sinus; G47.33 Obstructive sleep apnea (adult) (pediatric); H11.32 Conjunctival hemorrhage, left eye; Z68.33 Body mass index [BMI] 33.0-33.9, adult; Z79.84 Long term (current) use of oral hypoglycemic drugs; Z79.899 Other long term (current) drug therapy; Z87.440 Personal history of urinary (tract) infections; Z87.891 Personal history of nicotine dependence; Z95.5 Presence of coronary angioplasty implant and graft
CPT/HCPCS: 70450; 70551; 70553; 80048; 80053; 80061; 81003; 81015; 82248; 82962; 83036; 83735; 84100; 85025; 85027; 97112; 97116; 99284; A9575; G0378

== ENCOUNTER → 2025-03-24 14:57 | Outpatient (REF) | payer MEDICARE, OTHER, SELFPAY | LOC: HWRAD 14:57 | PROVIDERS: ATTENDING PHYSICIAN Family Medicine Adult Medicine | DX: N20.0 Calculus of kidney (principal); N21.0 Calculus in bladder | CPT/HCPCS: 76770 ==